=== PATIENT | male | born 1995 | race Asian ===

== ENCOUNTER 2021-12-18 18:32 | Inpatient (IN) ==
[2021-12-18] MEDS ORDERED: ONDANSETRON INJ 2 MG/ML 2 ML VIAL IV STA (19:26)
[2021-12-18] MEDS ORDERED: FAMOTIDINE 20MG IV PUSH 20 MG/5 ML SYR IV STA (19:26)
[2021-12-18] MEDS ORDERED: PANTOprazole 40 MG in SYRINGE 0 ML IV ONE (19:26)
[2021-12-18] MEDS ORDERED: SODIUM CHLORIDE 0.9% 1000ML 1,000 ML IV STA (19:26)
--- NOTE | 2021-12-18 19:31 | Emergency Department Note ---
Impression & Plan Acute upper gastrointestinal bleeding, Anemia, Acute hypotension, HALIE (acute kidney injury) ED Provider Note NAME: CHRIS SUE AGE: 26 SEX: M : 1995 ARRIVES VIA: Walk-In INFORMANT: Patient, ED PROVIDER(S): Kiran Sosa DO CHIEF COMPLAINT: GI bleeding HPI: The patient is a 26-year-old male who presented to the emergency department for an evaluation of GI bleeding. The patient for started noticing multiple episodes of emesis which she states were dark and some actually had gross blood. He then started noticing black stool. The symptoms occurred over the course the last 48 hours. Symptoms were moderate to severe. He started getting very dizzy and lightheaded especially with standing. He presented to the emergency department for further evaluation. The patient states he did have a near syncopal episode. He denies having any headache at this time. He said no fever. He has no sick contacts as far as he knows. He was brought directly back from triage because he was hypotensive. ROS: See above HPI for pertinent positives & negatives. A total of 10 systems reviewed and were otherwise negative. PAST MEDICAL HISTORY: See Below PAST SURGICAL HISTORY: See Below FAMILY HISTORY: See Below SOCIAL HISTORY: See Below HOME MEDICATIONS: See Below ALLERGIES: See Below VITALS: See Below PHYSICAL EXAMINATION: GENERAL: Patient is awake and alert. He is somewhat anxious appearing. EYES: The conjunctivae are clear. The pupils are round and reactive. EARS, NOSE, MOUTH AND THROAT: The nose is without any evidence of any deformity. Mucous membranes are dry. NECK: The neck is nontender and supple. RESPIRATORY: Normal respiratory effort is noted there is no evidence of wheezing rhonchi or rales CARDIOVASCULAR: Tachycardic rate with regular rhythm was noted. There is no definite murmur. GASTROINTESTINAL: Abdomen was soft and nondistended. There was no tenderness guarding or rigidity. Rectal exam revealed black stool which was strongly heme positive. MUSCULOSKELETAL/EXTREMITIES: There is no evidence of gross deformity full range of motion is noted in the hips and shoulders. SKIN: Skin was pale and dry. Pedal edema was noted bilaterally. This was trace. NEUROLOGIC: Patient is awake alert and oriented x3 MEDICAL DECISION MAKING: The patient is a 26-year-old male who presented to the emergency department with hypotension and GI bleeding. I discussed the patient's laboratory and rad iographic studies with him. He was treated with multiple IV fluid boluses. He was found have an elevated white blood cell count as well as anemia. He did not require blood transfusion at this time. Given the patient's elevation in creatinine I do feel significantly dehydrated. I discussed this case with the on-call [facility] hospitalist. They have agreed to evaluate the patient in the emergency department for further management and disposition. Triage Nursing notes reviewed. Prior medical records reviewed Vital Signs: reviewed and remarkable for hypotension and tachycardia. Differential diagnosis: Diverticulosis, AVM, coagulopathy, colitis, inflammatory bowel disease, malignancy, Katalina-Pride tear, esophagitis, peptic ulcer disease, variceal bleed, gastritis, epistaxis, fissure, hemorrhoids, as well as other pathologies. ER treatment provided: See below Diagnostics interpreted by me: ECG: EKG was obtained in the emergency department. My interpretation is normal sinus rhythm at 76 bpm. There was no PVCs noted. There was a delta wave appreciated with a normal NC interval. This could be consistent with a [id number]-[id number]-[id number] tracing. Cardiac Monitoring: An order was placed for continuous cardiac monitoring. The monitor shows a rate of 81 bpm with sinus tachycardia. Laboratory studies: As stated above and show below. Imaging studies: See below Consultation(s): I discussed this case with Dr. Boyce who is on-call for the [facility] hospitalist group. Past Med/Surg History Medical History (Updated 12/18/21 @ 21:00 by Deepti Boyce DO) No significant past medical history Surgical History (Updated 12/18/21 @ 20:58 by Deepti Boyce DO) No significant past surgical history Family History (Updated 12/18/21 @ 20:58 by Deepti Boyce DO) Other No significant family history Social History (Updated 12/18/21 @ 20:58 by Deepti Boyce DO) Smoking Status: Current every day smoker Tobacco Type: Cigarettes Hx Alcohol Use: No Hx Substance Use: No Preferred Language: Arabic Feels Safe at Home: Yes Allergies Allergies Allergy/AdvReac Type Severity Reaction Status Date / Time No Known Allergies Allergy Verified 12/18/21 20:59 Home Meds Home Medications Medication Instructions Recorded Confirmed No Known Home Medications 12/18/21 12/18/21 Results & Data (ED) Vital Signs Vital Signs - 24 hr 12/18/21 19:06 12/18/21 19:30 12/18/21 19:31 Temperature 36.5 C Temperature Source Temporal Artery Scan Pulse Rate - Lying Pulse Rate - Sitting Pulse Rate - Standing Pulse Rate 86 Pulse Rate [Bilateral Apical] 84 Respiratory Rate 20 20 20 Respiratory Effort / Characteristics Non-Labored Spontaneous Non-Labored Respiratory Depth Normal Normal Blood Pressure - Lying Blood Pressure - Sitting Blood Pressure- Standing Blood Pressure 66/45 L Blood Pressure [Right Arm] 75/39 L Blood Pressure Mean 52 Blood Pressure Mean [Right Arm] 51 Blood Pressure Position Sitting Pulse Oximetry 95 96 96 Oxygen Delivery Method Room Air Room Air Room Air Sepsis Recent Fever Within 48 Hours No Sepsis New/Unexplained Change in Mental Status N/A Sepsis Action Taken by Nursing No Action Required 12/18/21 19:32 12/18/21 19:51 12/18/21 20:15 Temperature Temperature Source Pulse Rate - Lying Pulse Rate - Sitting Pulse Rate - Standing Pulse Rate Pulse Rate [Bilateral Apical] 83 88 Respiratory Rate 20 20 Respiratory Effort / Characteristics Respiratory Depth Blood Pressure - Lying Blood Pressure - Sitting Blood Pressure- Standing Blood Pressure Blood Pressure [Right Arm] 90/46 L 95/54 L Blood Pressure Mean Blood Pressure Mean [Right Arm] 60 67 Blood Pressure Position Pulse Oximetry 96 100 96 Oxygen Delivery Method Room Air Room Air Room Air Sepsis Recent Fever Within 48 Hours Sepsis New/Unexplained Change in Mental Status Sepsis Action Taken by Nursing 12/18/21 20:43 12/18/21 22:00 12/18/21 22:00 Temperature Temperature Source Pulse Rate - Lying 90 Pulse Rate - Sitting 101 H Pulse Rate - Standing 102 H Pulse Rate Pulse Rate [Bilateral Apical] 86 101 H Respiratory Rate 20 18 Respiratory Effort / Characteristics Respiratory Depth Blood Pressure - Lying 102/74 Blood Pressure - Sitting 107/24 L Blood Pressure- Standing 144/59 H Blood Pressure Blood Pressure [Right Arm] 107/54 L 107/24 L Blood Pressure Mean Blood Pressure Mean [Right Arm] 71 51 Blood Pressure Position Pulse Oximetry 100 100 Oxygen Delivery Method Room Air Room Air Sepsis Recent Fever Within 48 Hours Sepsis New/Unexplained Change in Mental Status Sepsis Action Taken by [facility] Medications Current Medication List: was personally reviewed by me Laboratory Data Attestation: I reviewed the patient's lab results. Result diagrams: 12/18/21 19:25 12/18/21 19:25 Lab Results 12/18/21 12/18/21 12/18/21 Range/Units 19:25 19:25 19:25 WBC 27.55 H (4.8-10.8) K/ul RBC 3.45 L (4.63-6.08) M/uL Hgb 10.8 L (14.0-18.0) g/dl Hct 30.9 L (40.1-51.0) % MCV 89.6 (80.0-100.0) fL MCH 31.3 (25.0-34.0) pg MCHC 35.0 (32.0-36.0) g/dL RDW Std Deviation 42.6 (36.4-46.3) fL RDW Coeff of Shaggy 13.2 (11.5-14.5) % Plt Count 383 (130-400) K/uL MPV 9.8 (9.4-12.4) fL Immature Gran % (Auto) 2.0 % Neut % (Auto) 82.0 % Lymph % (Auto) 12.7 % [place] % (Auto) 2.9 % Eos % (Auto) 0.0 % Baso % (Auto) 0.4 % Neut # (Auto) 22.58 H (1.4-6.5) K/uL Lymph # (Auto) 3.49 H (1.2-3.4) K/uL [place] # (Auto) 0.80 (0.24-0.82) K/uL Eos # (Auto) 0.00 (0-0.50) K/uL Baso # (Auto) 0.12 (0-0.2) K/uL Immature Gran # (Auto) 0.56 H (0.00-0.02) K/uL PT 10.6 (9.0-12.0) Seconds INR 1.0 (0.9-1.1) APTT 20.4 L (21.0-31.0) Seconds PTT Ratio 0.7 Sodium 139 (136-145) mmol/L Potassium 5.0 (3.5-5.1) mmol/L Chloride 109 H (98-107) mmol/L Carbon Dioxide 20 L (21-32) mmol/L Anion Gap 10 (3-11) BUN 49 H (6-23) mg/dl Creatinine 2.69 H (0.6-1.4) mg/dl Est Cr Clr Drug Dosing 55.0 ml/min Est GFR ( Amer) 36.7 ml/min Est GFR (Non-Af Amer) 31.7 ml/min BUN/Creatinine Ratio 18.2 (10-20) Glucose 220 H (70-99(Fasting)) mg/dl Calcium 8.9 (8.5-10.1) mg/dl Total Bilirubin 0.7 (0.2-1.0) mg/dl AST 13 (13-39) U/L ALT 25 (7-52) U/L Alkaline Phosphatase 49 (34-104) U/L Troponin I High Sens 4.7 (0-20) pg/ml Total Protein 6.4 (6.0-8.3) gm/dl Albumin 4.1 (3.4-5.0) gm/dl Globulin 2.3 L (2.5-4.0) gm/dl Albumin/Globulin Ratio 1.8 (0.9-2) Lipase 23 (11-82) U/L Urine Color Urine Appearance (Clear) Urine pH (4.5-7.5) Ur Specific [place] (1.000-1.030) Urine Protein (Negative) Urine Glucose (UA) (Negative) Urine Ketones (Negative) Urine Blood (Negative) Urine Nitrite (Negative) Urine Bilirubin (Negative) Urine Urobilinogen (Negative) Ur Leukocyte Esterase (Negative) Urine WBC (Auto) (0-5) /hpf Urine RBC (Auto) (0-4) /hpf U Hyaline Cast (Auto) (0-5) /lpf U Epithel Cells (Auto) (0-5) /lpf Urine Bacteria (Auto) (Negative) Ur Renal Epithelial Cell POC Stool Occult Blood (Negative) SARS-CoV-2, RNA, NAAT (NEGATIVE) Blood Type Antibody Screen 12/18/21 12/18/21 12/18/21 Range/Units 19:28 19:33 19:44 WBC (4.8-10.8) K/ul RBC (4.63-6.08) M/uL Hgb (14.0-18.0) g/dl Hct (40.1-51.0) % MCV (80.0-100.0) fL MCH (25.0-34.0) pg MCHC (32.0-36.0) g/dL RDW Std Deviation (36.4-46.3) fL RDW Coeff of Shaggy (11.5-14.5) % Plt Count (130-400) K/uL MPV (9.4-12.4) fL Immature Gran % (Auto) % Neut % (Auto) % Lymph % (Auto) % [place] % (Auto) % Eos % (Auto) % Baso % (Auto) % Neut # (Auto) (1.4-6.5) K/uL Lymph # (Auto) (1.2-3.4) K/uL [place] # (Auto) (0.24-0.82) K/uL Eos # (Auto) (0-0.50) K/uL Baso # (Auto) (0-0.2) K/uL Immature Gran # (Auto) (0.00-0.02) K/uL PT (9.0-12.0) Seconds INR (0.9-1.1) APTT (21.0-31.0) Seconds PTT Ratio Sodium (136-145) mmol/L Potassium (3.5-5.1) mmol/L Chloride (98-107) mmol/L Carbon Dioxide (21-32) mmol/L Anion Gap (3-11) BUN (6-23) mg/dl Creatinine (0.6-1.4) mg/dl Est Cr Clr Drug Dosing ml/min Est GFR ( Amer) ml/min Est GFR (Non-Af Amer) ml/min BUN/Creatinine Ratio (10-20) Glucose (70-99(Fasting)) mg/dl Calcium (8.5-10.1) mg/dl Total Bilirubin (0.2-1.0) mg/dl AST (13-39) U/L ALT (7-52) U/L Alkaline Phosphatase (34-104) U/L Troponin I High Sens (0-20) pg/ml Total Protein (6.0-8.3) gm/dl Albumin (3.4-5.0) gm/dl Globulin (2.5-4.0) gm/dl Albumin/Globulin Ratio (0.9-2) Lipase (11-82) U/L Urine Color Urine Appearance (Clear) Urine pH (4.5-7.5) Ur Specific [place] (1.000-1.030) Urine Protein (Negative) Urine Glucose (UA) (Negative) Urine Ketones (Negative) Urine Blood (Negative) Urine Nitrite (Negative) Urine Bilirubin (Negative) Urine Urobilinogen (Negative) Ur Leukocyte Esterase (Negative) Urine WBC (Auto) (0-5) /hpf Urine RBC (Auto) (0-4) /hpf U Hyaline Cast (Auto) (0-5) /lpf U Epithel Cells (Auto) (0-5) /lpf Urine Bacteria (Auto) (Negative) Ur Renal Epithelial Cell POC Stool Occult Blood Positive A (Negative) SARS-CoV-2, RNA, NAAT NEGATIVE (NEGATIVE) Blood Type O Positive Antibody Screen NEGATIVE 12/18/21 Range/Units 22:10 WBC (4.8-10.8) K/ul RBC (4.63-6.08) M/uL Hgb (14.0-18.0) g/dl Hct (40.1-51.0) % MCV (80.0-100.0) fL MCH (25.0-34.0) pg MCHC (32.0-36.0) g/dL RDW Std Deviation (36.4-46.3) fL RDW Coeff of Shaggy (11.5-14.5) % Plt Count (130-400) K/uL MPV (9.4-12.4) fL Immature Gran % (Auto) % Neut % (Auto) % Lymph % (Auto) % [place] % (Auto) % Eos % (Auto) % Baso % (Auto) % Neut # (Auto) (1.4-6.5) K/uL Lymph # (Auto) (1.2-3.4) K/uL [place] # (Auto) (0.24-0.82) K/uL Eos # (Auto) (0-0.50) K/uL Baso # (Auto) (0-0.2) K/uL Immature Gran # (Auto) (0.00-0.02) K/uL PT (9.0-12.0) Seconds INR (0.9-1.1) APTT (21.0-31.0) Seconds PTT Ratio Sodium (136-145) mmol/L Potassium (3.5-5.1) mmol/L Chloride (98-107) mmol/L Carbon Dioxide (21-32) mmol/L Anion Gap (3-11) BUN (6-23) mg/dl Creatinine (0.6-1.4) mg/dl Est Cr Clr Drug Dosing ml/min Est GFR ( Amer) ml/min Est GFR (Non-Af Amer) ml/min BUN/Creatinine Ratio (10-20) Glucose (70-99(Fasting)) mg/dl Calcium (8.5-10.1) mg/dl Total Bilirubin (0.2-1.0) mg/dl AST (13-39) U/L ALT (7-52) U/L Alkaline Phosphatase (34-104) U/L Troponin I High Sens (0-20) pg/ml Total Protein (6.0-8.3) gm/dl Albumin (3.4-5.0) gm/dl Globulin (2.5-4.0) gm/dl Albumin/Globulin Ratio (0.9-2) Lipase (11-82) U/L Urine Color Yellow Urine Appearance Cloudy A (Clear) Urine pH 7.0 (4.5-7.5) Ur Specific [place] 1.014 (1.000-1.030) Urine Protein 2+ H (Negative) Urine Glucose (UA) Negative (Negative) Urine Ketones Negative (Negative) Urine Blood 1+ H (Negative) Urine Nitrite Negative (Negative) Urine Bilirubin Negative (Negative) Urine Urobilinogen Negative (Negative) Ur Leukocyte Esterase Negative (Negative) Urine WBC (Auto) 10-30 H (0-5) /hpf Urine RBC (Auto) 0-4 (0-4) /hpf U Hyaline Cast (Auto) 5-10 H (0-5) /lpf U Epithel Cells (Auto) 10-20 H (0-5) /lpf Urine Bacteria (Auto) Negative (Negative) Ur Renal Epithelial Cell Not Reportable POC Stool Occult Blood (Negative) SARS-CoV-2, RNA, NAAT (NEGATIVE) Blood Type Antibody Screen Administered Medications Discontinued Medications Sodium Chloride (Nss 1000ml) 1,000 mls @ 999 mls/hr IV .Q1H1M STA Stop: 12/18/21 20:26 Last Infusion: 12/18/21 20:16 Dose: 0 mls/hr Documented By: Admin: 12/18/21 19:40 Dose: 999 mls/hr Documented By: BENJAMÍN Pantoprazole Sodium 40 mg/ (Syringe) 10 mls @ 5 mls/min IV NOW ONE Stop: 12/18/21 19:27 Last Admin: 12/18/21 19:51 Dose: 5 mls/min Documented By: HWG Famotidine (Pepcid 20mg Iv Push) 20 mg in 5 mls @ 2.5 mls/min IV NOW STA Stop: 12/18/21 19:27 Last Admin: 12/18/21 19:40 Dose: 2.5 mls/min Documented By: BOBG Sodium Chloride (Nss 1000ml) 1,000 mls @ 999 mls/hr IV .Q1H1M ONE Stop: 12/18/21 21:53 Last Infusion: 12/18/21 22:21 Dose: 0 mls/hr Documented By: HWPete Admin: 12/18/21 21:12 Dose: 999 mls/hr Documented By: QGV Ondansetron HCl (Ondansetron Inj 2 Mg/Ml 2 Ml Vial) 4 mg IV NOW STA Stop: 12/18/21 19:27 Last Admin: 12/18/21 19:40 Dose: 4 mg Documented By: HWPete Imaging Data Radiologist's Impression: Chest X-Ray 12/18/21 19:26 XR chest 1V portable HISTORY: GI bleed. COMPARISON: None. FINDINGS: The lungs are clear. Cardiac silhouette is normal in size. No pleural effusions. No pneumothorax. IMPRESSION: No acute process. ACT 112: Negative or not required by law. Electronically signed by: Alen Morris M.D. 12/18/2021 8:28 PM KUB X-Ray 12/18/21 19:26 KUB HISTORY: GI bleed. COMPARISON: None. FINDINGS: A few prominent gas-filled loops of small bowel within the right side of the abdomen measuring up to 3.3 cm in diameter. There is gas and stool seen throughout the colon. The No renal calculi. No ureteral calculi. No pneumoperitoneum or pneumatosis. IMPRESSION: A few prominent gas-filled loops of small bowel within the right side of the abdomen. This favors a mild ileus. A partial bowel obstruction is considered less likely but not entirely excluded. ACT 112: Negative or not required by law. Electronically signed by: Alen Morris M.D. 12/18/2021 8:26 PM Discharge Plan Visit Data Chief Complaint: Vomiting Stated Complaint: VOMITTING BLOOD, LOOSE BOWELS ED Provider: Kiran Sosa Discharge Problem: Acute upper gastrointestinal bleeding, Anemia, Acute hypotension, HALIE (acute kidney injury) Patient Disposition: Being Evaluated by Hospitalist Forms Stand Alone Forms: Belly Ballot Prescriptions Prescriptions: No Action No Known Home Medications Referrals Referrals: PCP,NO [Primary Care Provider] -
[2021-12-18 19:40] LABS: Hematocrit (blood only) 30.9 % (40.1-51.0); Hemoglobin 10.8 g/dl (14.0-18.0); Mean Corpuscular Hemoglobin 31.3 pg (25.0-34.0); Mean Corpuscular Volume 89.6 fL (80.0-100.0); Mean Platelet Volume 9.8 fL (9.4-12.4); Platelet Count 383 K/uL (130-400); RDW Coefficient of Variation 13.2 % (11.5-14.5); RDW Standard Deviation 42.6 fL (36.4-46.3); Red Blood Count 3.45 M/uL (4.63-6.08); White Blood Count 27.55 K/ul (4.8-10.8)
[2021-12-18 19:54] LABS: Partial Thromboplastin Ratio 0.7; Partial Thromboplastin Time 20.4 Seconds (21.0-31.0); Prothrombin Time 10.6 Seconds (9.0-12.0)
[2021-12-18 19:57] LABS: Basophils # (auto) 0.12 K/uL (0-0.2); Basophils % (auto) 0.4 %; Immature Granulocytes # (auto) 0.56 K/uL (0.00-0.02); Lymphocytes # (auto) 3.49 K/uL (1.2-3.4); Lymphocytes % (auto) 12.7 %; Monocytes % (auto) 2.9 %; Neutrophils # (auto) 22.58 K/uL (1.4-6.5)
[2021-12-18 20:06] LABS: Albumin Globulin Ratio 1.8 (0.9-2); Albumin Level 4.1 gm/dl (3.4-5.0); BUN Creatinine Ratio 18.2 (10-20); Bilirubin,Total 0.7 mg/dl (0.2-1.0); Calcium 8.9 mg/dl (8.5-10.1); Est GFR (African American) 36.7 ml/min; Est GFR (Non-African American) 31.7 ml/min; Globulin 2.3 gm/dl (2.5-4.0); Total Protein 6.4 gm/dl (6.0-8.3)
[2021-12-18 20:07] LABS: Troponin I High Sensitivity 4.7 pg/ml (0-20)
--- NOTE | 2021-12-18 20:28 | XRay Report ---
KUB HISTORY: GI bleed. COMPARISON: None. FINDINGS: A few prominent gas-filled loops of small bowel within the right side of the abdomen measur ing up to 3.3 cm in diameter. There is gas and stool seen throughout the colon. The No renal calculi . No ureteral calculi. No pneumoperitoneum or pneumatosis. IMPRESSION: A few prominent gas-filled loops of small bowel within the right side of the abdomen. This favors a m ild ileus. A partial bowel obstruction is considered less likely but not entirely excluded. ACT 112: Negative or not required by law. Electronically signed by: Alen Morris M.D. 12/18/2021 8:26 PM
--- NOTE | 2021-12-18 20:30 | XRay Report ---
XR chest 1V portable HISTORY: GI bleed. COMPARISON: None. FINDINGS: The lungs are clear. Cardiac silhouette is normal in size. No pleural effusions. No pneumot horax. IMPRESSION: No acute process. ACT 112: Negative or not required by law. Electronically signed by: Alen Morris M.D. 12/18/2021 8:28 PM
--- NOTE | 2021-12-18 20:48 | History & Physical Report ---
Date of Service December 18, 2021 Assessment & Plan (1) Nausea vomiting and diarrhea: Plan: 26 yo male with no significant past medical or surgical history presenting with one day of nausea with several episodes of hematemesis as well as black watery diarrhea. Patient does smoke cigarettes, no EtOH or NSAID use. Hypotensive on presentation to 66/45 which has improved to 107/54 following 2L crystalloid resuscitation. -Admit to PCU -Check stool PCR -Continue IVF - LR at 125mL/hr x 2 liters -Zofran PRN nausea (2) GIB (gastrointestinal bleeding): Plan: Patient reports bright red vomitus with clots present. No prior history of UGIB. No EtOH or NSAID use. Patient does smoke. Blood pressure has improved. Ddx to include Katalina Pride tear, gastric or duodenal ulcer, esophagitis. Normochromic normocytic anemia with Hgb=10.8/30.9 Normal INR and platelet -Maintain two large bore PIVs -CBC q 8 hours, transfuse for ongoing bleed, symptomatic anemia or Hgb < 7 -NPO -Continue Protonix 40mg IV BID -GI consultation appreciated (3) HALIE (acute kidney injury): Plan: Elevated BUN at 49, Cr of 2.69, unknown baseline. Suspect pre-renal etiology in setting of vomiting, diarrhea and possible GIB. Patient is urinating without difficulty. BMP with borderline K of 5 and HCO3 of 10 with normal anion gap. -Monitor UOP -Avoid nephrotoxic agents -Renal dosing where needed - LR as above at 125mL/hr x 2 liters -Repeat chemistry F/E/N - LR at 125mL/hr x 2 liters, monitor electrolytes. NPO Ppx - Low risk for DVT Code - Full Dispo - Admit to PCU History of Present Illness Chief Complaint: nausea, vomiting, hematemesis, diarrhea Primary Care Provider: NO PCP Bakari Etienne is a 26yo male with no significant past medical history presenting with one day of nausea with 3 episodes of hematemesis that started this AM. He reports bright red blood with presence of clots in the vomitus. He also has had several episodes of black, watery diarrhea. Patient reports feeling chills and tired. He also had dizziness and possible syncopal event while in the shower today. He has no additional complaints. Specifically denies fever, chills, cough, SOB, chest pain, abdominal pain. No sick contacts, recent travel. Patient does smoke cigarettes - appx 1 ppd. He does not drink alcohol or use NSAIDS or ASA. No history of prior GIB. 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 No additional complaints at this time. Upon arrival to the ER patient hypotensive at 66/45. He was administered IV Pepcid, Zofran, Protonix and 2L NSS with improvement in blood pressure. Most recently 107/54. ER course: Pepcid 20mg IV, Zofran 4mg IV, Protonix gtt, NSS x 2L Allergies Allergy/AdvReac Type Severity Reaction Status Date / Time No Known Allergies Allergy Verified 12/18/21 20:59 Home Medications Medication Instructions Recorded Confirmed Type No Known Home Medications 12/18/21 12/18/21 History Past Med/Surg History Medical History (Updated 12/18/21 @ 21:00 by Deepti Boyce DO) No significant past medical history Surgical History (Updated 12/18/21 @ 20:58 by Deepti Boyce DO) No significant past surgical history Family History (Updated 12/18/21 @ 20:58 by Deepti Boyce DO) Other No significant family history Social History (Updated 12/18/21 @ 20:58 by Deepti Boyce DO) Smoking Status: Current every day smoker Tobacco Type: Cigarettes Hx Alcohol Use: No Hx Substance Use: No Preferred Language: Kenyan Feels Safe at Home: Yes Review of Systems Review of Systems: All systems reviewed & are unremarkable except as noted in HPI & below Physical Exam Physical Exam: General: patient resting comfortably, NAD, non-toxic in rosi earance, AA&O x 4 Skin: warm, dry, intact, no rashes or lesions HEENT: NC/AT, PERRL, EOMI, anicteric sclera, conjunctiva without injection, external ear normal to inspection and nontender, nares patent, moist mucus membranes, dentition intact, no oropharyngeal lesions, neck supple, trachea midline, no LAD, no thyromegaly, no JVD Heart: +S1/S2, regular, no m/r/g Lungs: equal air entry bilaterally, no rales/rhonchi/wheezes Abd: +BS, soft, NT/ND, no masses/organomegaly/ascites Ext: warm, 2+ pulses in UE/LE bilaterally, no clubbing/cyanosis or edema Neuro: nonfocal, patient AA&O x 4, speech intact, no facial droop, moving all extremities on command with equal strength 5/5 Results & Data Results & Data ([facility]) Vital Signs (Past 12 Hours) Vital Signs Temp Pulse Pulse Resp BP BP Pulse Ox 12/18/21 20:43 86 20 107/54 L 100 12/18/21 20:15 88 20 95/54 L 96 12/18/21 19:51 83 20 90/46 L 100 12/18/21 19:32 96 12/18/21 19:31 20 96 12/18/21 19:30 84 20 75/39 L 96 12/18/21 19:06 36.5 C 86 20 66/45 L 95 O2 Del Method 12/18/21 20:43 Room Air 12/18/21 20:15 Room Air 12/18/21 19:51 Room Air 12/18/21 19:32 Room Air 12/18/21 19:31 Room Air 12/18/21 19:30 Room Air 12/18/21 19:06 Room Air Laboratory Results Laboratory Results WBC 27.55 K/ul (4.8-10.8) H 12/18/21 19:25 RBC 3.45 M/uL (4.63-6.08) L 12/18/21 19:25 Hgb 10.8 g/dl (14.0-18.0) L 12/18/21 19:25 Hct 30.9 % (40.1-51.0) L 12/18/21 19:25 MCV 89.6 fL (80.0-100.0) 12/18/21 19:25 MCH 31.3 pg (25.0-34.0) 12/18/21 19:25 MCHC 35.0 g/dL (32.0-36.0) 12/18/21 19:25 RDW Std Deviation 42.6 fL (36.4-46.3) 12/18/21 19:25 RDW Coeff of Shaggy 13.2 % (11.5-14.5) 12/18/21 19:25 Plt Count 383 K/uL (130-400) 12/18/21 19:25 MPV 9.8 fL (9.4-12.4) 12/18/21 19:25 Immature Gran % (Auto) 2.0 % 12/18/21 19:25 Neut % (Auto) 82.0 % 12/18/21 19:25 Lymph % (Auto) 12.7 % 12/18/21 19:25 [place] % (Auto) 2.9 % 12/18/21:25 Eos % (Auto) 0.0 % 12/18/21:25 Baso % (Auto) 0.4 % 12/18/21: Neut # (Auto) 22.58 K/uL (1.4-6.5) H 12/18/21 19:25 Lymph # (Auto) 3.49 K/uL (1.2-3.4) H 12/18/21 19:25 [place] # (Auto) 0.80 K/uL (0.24-0.82) 12/18/21:25 Eos # (Auto) 0.00 K/uL (0-0.50) 12/18/21: Baso # (Auto) 0.12 K/uL (0-0.2) 12/18/21 19:25 Immature Gran # (Auto) 0.56 K/uL (0.00-0.02) H 12/18/21 19:25 PT 10.6 Seconds (9.0-12.0) 12/18/21 19:25 INR 1.0 (0.9-1.1) 12/18/21 19:25 APTT 20.4 Seconds (21.0-31.0) L 12/18/21: PTT Ratio 0.7 12/18/21 19:25 Sodium 139 mmol/L (136-145) 12/18/21 19:25 Potassium 5.0 mmol/L (3.5-5.1) 12/18/21 19:25 Chloride 109 mmol/L (98-107) H 12/18/21 19:25 Carbon Dioxide 20 mmol/L (21-32) L 12/18/21 19:25 Anion Gap 10 (3-11) 12/18/21 19:25 BUN 49 mg/dl (6-23) H 12/18/21 19:25 Creatinine 2.69 mg/dl (0.6-1.4) H 12/18/21 19:25 Est Cr Clr Drug Dosing 55.0 ml/min 12/18/21 19:25 Est GFR ( Amer) 36.7 ml/min 12/18/21 19:25 Est GFR (Non-Af Amer) 31.7 ml/min 12/18/21 19:25 BUN/Creatinine Ratio 18.2 (10-20) 12/18/21 19:25 Glucose 220 mg/dl (70-99(Fasting)) H 12/18/21 19:25 Calcium 8.9 mg/dl (8.5-10.1) 12/18/21 19:25 Total Bilirubin 0.7 mg/dl (0.2-1.0) 12/18/21 19:25 AST 13 U/L (13-39) 12/18/21 19:25 ALT 25 U/L (7-52) 12/18/21 19:25 Alkaline Phosphatase 49 U/L (34-104) 12/18/21 19:25 Troponin I High Sens 4.7 pg/ml (0-20) 12/18/21 19:25 Total Protein 6.4 gm/dl (6.0-8.3) 12/18/21 19:25 Albumin 4.1 gm/dl (3.4-5.0) 12/18/21 19:25 Globulin 2.3 gm/dl (2.5-4.0) L 12/18/21 19:25 Albumin/Globulin Ratio 1.8 (0.9-2) 12/18/21 19:25 Lipase 23 U/L (11-82) 12/18/21 19:25 Blood Type O Positive 12/18/21: Antibody Screen NEGATIVE 12/18/21 19:28 Impressions Chest X-Ray 12/18/21 19: XR chest 1V portable HISTORY: GI bleed. COMPARISON: None. FINDINGS: The lungs are clear. Cardiac silhouette is normal in size. No pleural effusions. No pneumothorax. IMPRESSION: No acute process. ACT 112: Negative or not required by law. Electronically signed by: Alen Morris M.D. 12/18/2021 8:28 PM KUB X-Ray 12/18/21 19: KUB HISTORY: GI bleed. COMPARISON: None. FINDINGS: A few prominent gas-filled loops of small bowel within the right side of the abdomen measuring up to 3.3 cm in diameter. There is gas and stool seen throughout the colon. The No renal calculi. No ureteral calculi. No pneumoperitoneum or pneumatosis. IMPRESSION: A few prominent gas-filled loops of small bowel within the right side of the abdomen. This favors a mild ileus. A partial bowel obstruction is considered less likely but not entirely excluded. ACT 112: Negative or not required by law. Electronically signed by: Alen Morris M.D. 12/18/2021 8:26 PM PG Care Time/CCT Total # of Minutes Spent Total Time Spent with Patient: Total time spent is greater than 50% in coordination of care (as documented) at patient's floor/unit and/or counseling patient: Coding Level of Care Code 81328 Initial Inpt Care Lvl 2 Diagnoses Nausea vomiting and diarrhea R11.2; R19.7 GIB (gastrointestinal bleeding) K92.2 HALIE (acute kidney injury) N17.9
[2021-12-18] MEDS ORDERED: SODIUM CHLORIDE 0.9% 1000ML 1,000 ML IV ONE (20:53)
[2021-12-18 22:28] LABS: Appearance Urine Cloudy (Clear); Bacteria Urine Automated Negative (Negative); Bilirubin Urine Negative (Negative); Blood Urine 1+ (Negative); Color Urine Yellow; Glucose Urine UA Negative (Negative); Ketones Urine Negative (Negative); Leukocyte Esterase Urine Negative (Negative); Nitrite Urine Negative (Negative); Protein Urine 2+ (Negative); RBC Urine Automated 0-4 /hpf (0-4); Specific Gravity Urine 1.014 (1.000-1.030); Urobilinogen Urine Negative (Negative)
[2021-12-18] MEDS ORDERED: ONDANSETRON INJ 2 MG/ML 2 ML VIAL IV PRN (23:05)
[2021-12-18] MEDS ORDERED: ACETAMINOPHEN 325 MG TAB PO PRN (23:05)
[2021-12-18] MEDS: LACTATED RINGER'S 1,000 ML IV SCH (23:45)
[2021-12-18] MEDS: PANTOprazole 40 MG in SYRINGE 0 ML IV SCH (23:46)
[2021-12-18 23:51] LABS: Basophils # (auto) 0.04 K/uL (0-0.2); Basophils % (auto) 0.2 %; Hematocrit (blood only) 24.5 % (40.1-51.0); Hemoglobin 8.2 g/dl (14.0-18.0); Immature Granulocytes % (auto) 1.5 %; Lymphocytes # (auto) 2.65 K/uL (1.2-3.4); Lymphocytes % (auto) 13.3 %; Mean Corpuscular Hemoglobin 30.4 pg (25.0-34.0); Mean Corpuscular Hgb Conc 33.5 g/dL (32.0-36.0); Mean Corpuscular Volume 90.7 fL (80.0-100.0); Mean Platelet Volume 9.7 fL (9.4-12.4); Monocytes # (auto) 0.86 K/uL (0.24-0.82); Monocytes % (auto) 4.3 %; Neutrophils # (auto) 16.11 K/uL (1.4-6.5); Neutrophils % (auto) 80.7 %; Platelet Count 277 K/uL (130-400); RDW Coefficient of Variation 13.2 % (11.5-14.5); RDW Standard Deviation 43.2 fL (36.4-46.3); White Blood Count 19.96 K/ul (4.8-10.8)
[2021-12-19 00:17] LABS: Calcium 7.7 mg/dl (8.5-10.1); Creatinine Clr Calc Pharmacy 77.8 ml/min; Est GFR (African American) 55.9 ml/min; Est GFR (Non-African American) 48.3 ml/min; Potassium 4.3 mmol/L (3.5-5.1)
[2021-12-19] MEDS: LACTATED RINGER'S 1,000 ML IV SCH (07:09)
[2021-12-19 07:54] LABS: Basophils # (auto) 0.05 K/uL (0-0.2); Basophils % (auto) 0.3 %; Eosinophils # (auto) 0.04 K/uL (0-0.50); Eosinophils % (auto) 0.3 %; Hematocrit (blood only) 22.2 % (40.1-51.0); Hemoglobin 7.6 g/dl (14.0-18.0); Immature Granulocytes # (auto) 0.15 K/uL (0.00-0.02); Immature Granulocytes % (auto) 0.9 %; Lymphocytes % (auto) 24.5 %; Mean Corpuscular Hgb Conc 34.2 g/dL (32.0-36.0); Mean Corpuscular Volume 90.6 fL (80.0-100.0); Mean Platelet Volume 9.9 fL (9.4-12.4); Monocytes # (auto) 0.91 K/uL (0.24-0.82); Monocytes % (auto) 5.7 %; Neutrophils % (auto) 68.3 %; Platelet Count 261 K/uL (130-400); RDW Coefficient of Variation 13.3 % (11.5-14.5); RDW Standard Deviation 43.4 fL (36.4-46.3); Red Blood Count 2.45 M/uL (4.63-6.08); White Blood Count 15.95 K/ul (4.8-10.8)
[2021-12-19 08:13] LABS: BUN Creatinine Ratio 28.4 (10-20); Creatinine Clr Calc Pharmacy 104.9 ml/min; Est GFR (African American) 80.2 ml/min; Est GFR (Non-African American) 69.2 ml/min; Potassium 3.7 mmol/L (3.5-5.1)
[2021-12-19 08:14] LABS: Estimated Average Glucose 111 mg/dl; Hemoglobin A1C 5.5 % (4.5-5.6)
--- NOTE | 2021-12-19 08:19 | Electrocardiogram Report ---
Test Reason : Blood Pressure : / mmHG Vent. Rate : 076 BPM Atrial Rate : 076 BPM P-R Int : 136 ms QRS Dur : 114 ms QT Int : 420 ms P-R-T Axes : 012 -04 054 degrees QTc Int : 472 ms Normal sinus rhythm [id number] Abnormal ECG No previous ECGs available Confirmed by Claudio Pickens ([id number]) on 12/19/2021 8:18:50 AM Referred By: REFERRED SELF Confirmed By:Claudio Pickens
[2021-12-19 08:20] LABS: RBC Morphology Unremarkable
[2021-12-19] MEDS: PANTOprazole 40 MG in SYRINGE 0 ML IV SCH ×2 (08:57→21:29)
--- NOTE | 2021-12-19 10:07 | Hospitalist Progress Note ---
Date of Service December 19, 2021 Assessment & Plan (1) Nausea vomiting and diarrhea: Plan: 26 yo M, current smoker with 5 pack year history, admitted for hematemesis and melena. Acute hematemesis with upper gastrointestinal hemorrhage -Hypotensive on admission, given multiple fluid boluses -Suspect likely due to peptic ulcer disease 2/2 smoking -PT/INR normal, stool PCR pending -Hgb 10.8 on admission, downtrending to 7.6 -Monitor H+H, repeat in afternoon -Transfuse Hgb < 7 -Hemodynamically stable at present -Continue IVF, Protonix infusion, Zofran PRN -GI consulted, awaiting recommendations- suspect pt will need upper endoscopy Acute kidney injury -BUN 49, Cr 2.69 on admission -BUN 40, Cr 1.4 today -Suspect pre-renal azotemia from volume depletion 2/2 UGIB, GI losses -Continue IVF -Trend BMP Tobacco use disorder -Likely cause of his GI bleed -Pt interested in gradually reducing use -Encourage smoking cessation treatment as outpatient FENGI: IVF, NPO for possible endoscopy Code status: Full DVT ppx: Ambulation, low-risk Isolation: None Dispo: PCU/Telemetry (2) GIB (gastrointestinal bleeding): (3) HALIE (acute kidney injury): Admission and Anticipated Discharge Date Admission Date: December 18, 2021 Supervising Physician Co-Signing Physician Notes Resident Physician Supervision Note: I independently interviewed and examined the patient and verified the barrett history and physical, reviewed labs and image studies and agree with resident findings and care plan. Subjective No acute events overnight. Pt reports feeling well. Reports mild nausea responsive to Zofran, fatigue improving. No further episodes of hematemesis or dark stools. Denies abdominal pain, chest pain. Pt does state he would like to lessen his tobacco use if this is contributory to his bleeding. Review of Systems Review of Systems: Per subjective Physical Exam Physical Exam: General: well-appearing obese male in no acute distress HEENT: mildly dry mucous membranes, no blood noted in pharynx on inspection CV: RRR, normal S1 and S2, no murmurs appreciated, no JVD Resp: CTAB, unlabored respirations Abd: soft, nontender, nondistended, normoactive bowel sounds, no guarding or rebound Extremities: capillary refill <2s of b/l UE and LE, radial/pedal pulses 2+ b/l Skin: warm, dry, no central or peripheral pallor Results & Data Results & Data ([facility]) Vital Signs (Past 12 Hours) Vital Signs Pulse Pulse Resp BP BP Pulse Ox Pulse Ox 12/19/21 08:00 74 17 95 12/19/21 08:00 111/50 L 12/19/21 07:30 112/55 L 12/19/21 07:30 72 17 99 12/19/21 07:00 70 15 96 12/19/21 07:00 105/63 12/19/21 06:50 74 20 130/61 98 12/19/21 06:28 81 20 109/54 L 98 12/19/21 05:51 94 H 20 97/54 L 99 12/19/21 04:38 82 20 83/51 L 92 12/19/21 03:48 85 20 105/51 L 93 12/19/21 02:26 86 20 84/46 L 95 12/19/21 00:44 90 20 95/44 L 92 12/18/21 23:46 78 20 90/47 L 98 12/18/21 23:38 98 12/18/21 23:04 88 20 85/43 L 98 O2 Del Method O2 Del Method 12/19/21 08:00 12/19/21 08:00 12/19/21 07:30 12/19/21 07:30 12/19/21 07:00 12/19/21 07:00 12/19/21 06:50 Room Air 12/19/21 06:28 Room Air 12/19/21 05:51 Room Air 12/19/21 04:38 Room Air 12/19/21 03:48 Room Air 12/19/21 02:26 Room Air 12/19/21 00:44 Room Air 12/18/21 23:46 Room Air 12/18/21 23:38 Room Air 12/18/21 23:04 Room Air Resident Activity Tracking Resident Involvement: Resident Care Provided Care Provided: Adult Hospital Medicine
--- NOTE | 2021-12-19 12:52 | Gastrointestinal Consultation ---
Date of Consultation December 19, 2021 Assessment & Plan (1) GIB (gastrointestinal bleeding): Episode of hematemesis without obvious cause. Only risk for ulcer disease is cigarette smoking. History not typical for rosa-hu. Plan EGD. Discussed procedure and risks with patient and spouse History of Present Illness Reason for Consultation: GI bleeding Attending Physician: Deepti Boyce, DO History of Present Illness 26 year old man who tells me he woke up yesterday vomiting blood. He vomited on three occasions with dark blood. Denies abdominal pain or heartburn or indigestion. Denies Etoh or NSAID usage. Feels well now and felt well before Allergies Allergy/AdvReac Type Severity Reaction Status Date / Time No Known Allergies Allergy Verified 12/18/21 20:59 Home Medications Medication Instructions Recorded Confirmed Type No Known Home Medications 12/18/21 12/18/21 History Patient History Medical History No significant past medical history Surgical History No significant past surgical history Family History Other No significant family history Social History Smoking Status: Current every day smoker Tobacco Type: Cigarettes Hx Alcohol Use: No Hx Substance Use: No Preferred Language: Chinese Feels Safe at Home: Yes Assistive Devices: None Review of Systems Review of Systems: All systems reviewed & are unremarkable except as noted in HPI & below Physical Exam Constitutional: WD/WN, vitals as above no acute distress Eyes: PERRL, conjunctivae normal, anicteric sclerae ENMT: external ear and nose normal, oropharynx normal Neck: trachea midline, no thyromegaly Respiratory: normal respiratory effort, lungs clear to auscultation Cardiovascular: RRR, no murmur, no edema Gastrointestinal (Abdomen): normal bowel sounds, soft, nontender, no hepatosplenomegaly Musculoskeletal: Extremities: no cyanosis and no clubbing Skin: no rashes, warm and dry Neurologic: PERRL, EOMI, accommodation nl, no face palsy, no dysarthria Psychiatric: Orientation: alert and oriented x 3 Results & Data ([facility]) Vital Signs (Past 12 Hours) Vital Signs Pulse Pulse Resp BP BP Pulse Ox O2 Del Method 12/19/21 12:30 85 21 98 12/19/21 12:30 102/68 12/19/21 12:00 83 20 96 12/19/21 12:00 108/62 12/19/21 11:30 87 16 97 12/19/21 11:30 109/67 12/19/21 11:00 84 18 98 12/19/21 11:00 117/60 12/19/21 10:30 114/55 L 12/19/21 10:30 69 15 99 12/19/21 10:00 73 19 100 12/19/21 10:00 106/55 L 12/19/21 09:30 79 19 100 12/19/21 09:30 114/63 12/19/21 09:00 82 14 99 12/19/21 09:00 107/61 12/19/21 08:30 106/57 L 12/19/21 08:30 79 17 98 12/19/21 08:00 74 17 95 12/19/21 08:00 111/50 L 12/19/21 07:30 112/55 L 12/19/21 07:30 72 17 99 12/19/21 07:00 70 15 96 12/19/21 07:00 105/63 12/19/21 06:50 74 20 130/61 98 Room Air 12/19/21 06:28 81 20 109/54 L 98 Room Air 12/19/21 05:51 94 H 20 97/54 L 99 Room Air 12/19/21 04:38 82 20 83/51 L 92 Room Air 12/19/21 03:48 85 20 105/51 L 93 Room Air 12/19/21 02:26 86 20 84/46 L 95 Room Air Laboratory Results 12/19/21 12/19/21 12/19/21 Range/Units 07:18 07:18 07:18 WBC 15.95 H (4.8-10.8) K/ul RBC 2.45 L (4.63-6.08) M/uL Hgb 7.6 L (14.0-18.0) g/dl Hct 22.2 L (40.1-51.0) % MCV 90.6 (80.0-100.0) fL MCH 31.0 (25.0-34.0) pg MCHC 34.2 (32.0-36.0) g/dL RDW Std Deviation 43.4 (36.4-46.3) fL RDW Coeff of Shaggy 13.3 (11.5-14.5) % Plt Count 261 (130-400) K/uL MPV 9.9 (9.4-12.4) fL Immature Gran % (Auto) 0.9 % Neut % (Auto) 68.3 % Lymph % (Auto) 24.5 % Harvey % (Auto) 5.7 % Eos % (Auto) 0.3 % Baso % (Auto) 0.3 % Neut # (Auto) 10.90 H (1.4-6.5) K/uL Lymph # (Auto) 3.90 H (1.2-3.4) K/uL Harvey # (Auto) 0.91 H (0.24-0.82) K/uL Eos # (Auto) 0.04 (0-0.50) K/uL Baso # (Auto) 0.05 (0-0.2) K/uL Immature Gran # (Auto) 0.15 H (0.00-0.02) K/uL RBC Morphology Unremarkable PT (9.0-12.0) Seconds INR (0.9-1.1) APTT (21.0-31.0) Seconds PTT Ratio Sodium 141 (136-145) mmol/L Potassium 3.7 (3.5-5.1) mmol/L Chloride 114 H (98-107) mmol/L Carbon Dioxide 23 (21-32) mmol/L Anion Gap 4 (3-11) BUN 40 H (6-23) mg/dl Creatinine 1.41 H D (0.6-1.4) mg/dl Est Cr Clr Drug Dosing 104.9 ml/min Est GFR ( Amer) 80.2 ml/min Est GFR (Non-Af Amer) 69.2 ml/min BUN/Creatinine Ratio 28.4 H (10-20) Glucose 94 (70-99(Fasting)) mg/dl Fasting Glucose (70-99) mg/dl Estimat Average Glucose 111 mg/dl Hemoglobin A1c 5.5 (4.5-5.6) % Calcium 8.0 L (8.5-10.1) mg/dl Total Bilirubin (0.2-1.0) mg/dl AST (13-39) U/L ALT (7-52) U/L Alkaline Phosphatase (34-104) U/L Troponin I High Sens (0-20) pg/ml Total Protein (6.0-8.3) gm/dl Albumin (3.4-5.0) gm/dl Globulin (2.5-4.0) gm/dl Albumin/Globulin Ratio (0.9-2) Lipase (11-82) U/L Urine Color Urine Appearance (Clear) Urine pH (4.5-7.5) Ur Specific [place] (1.000-1.030) Urine Protein (Negative) Urine Glucose (UA) (Negative) Urine Ketones (Negative) Urine Blood (Negative) Urine Nitrite (Negative) Urine Bilirubin (Negative) Urine Urobilinogen (Negative) Ur Leukocyte Esterase (Negative) Urine WBC (Auto) (0-5) /hpf Urine RBC (Auto) (0-4) /hpf U Hyaline Cast (Auto) (0-5) /lpf U Epithel Cells (Auto) (0-5) /lpf Urine Bacteria (Auto) (Negative) Ur Renal Epithelial Cell POC Stool Occult Blood (Negative) SARS-CoV-2, RNA, NAAT (NEGATIVE) Blood Type Antibody Screen 12/18/21 12/18/21 12/18/21 Range/Units 23:27 23:27 22:10 WBC 19.96 H (4.8-10.8) K/ul RBC 2.70 L (4.63-6.08) M/uL Hgb 8.2 L (14.0-18.0) g/dl Hct 24.5 L (40.1-51.0) % MCV 90.7 (80.0-100.0) fL MCH 30.4 (25.0-34.0) pg MCHC 33.5 (32.0-36.0) g/dL RDW Std Deviation 43.2 (36.4-46.3) fL RDW Coeff of Shaggy 13.2 (11.5-14.5) % Plt Count 277 (130-400) K/uL MPV 9.7 (9.4-12.4) fL Immature Gran % (Auto) 1.5 % Neut % (Auto) 80.7 % Lymph % (Auto) 13.3 % Harvey % (Auto) 4.3 % Eos % (Auto) 0.0 % Baso % (Auto) 0.2 % Neut # (Auto) 16.11 H (1.4-6.5) K/uL Lymph # (Auto) 2.65 (1.2-3.4) K/uL Harvey # (Auto) 0.86 H (0.24-0.82) K/uL Eos # (Auto) 0.00 (0-0.50) K/uL Baso # (Auto) 0.04 (0-0.2) K/uL Immature Gran # (Auto) 0.30 H (0.00-0.02) K/uL RBC Morphology PT (9.0-12.0) Seconds INR (0.9-1.1) APTT (21.0-31.0) Seconds PTT Ratio Sodium 141 (136-145) mmol/L Potassium 4.3 (3.5-5.1) mmol/L Chloride 115 H (98-107) mmol/L Carbon Dioxide 19 L (21-32) mmol/L Anion Gap 7 (3-11) BUN 46 H (6-23) mg/dl Creatinine 1.90 H D (0.6-1.4) mg/dl Est Cr Clr Drug Dosing 77.8 ml/min Est GFR ( Amer) 55.9 ml/min Est GFR (Non-Af Amer) 48.3 ml/min BUN/Creatinine Ratio (10-20) Glucose (70-99(Fasting)) mg/dl Fasting Glucose 91 (70-99) mg/dl Estimat Average Glucose mg/dl Hemoglobin A1c (4.5-5.6) % Calcium 7.7 L (8.5-10.1) mg/dl Total Bilirubin (0.2-1.0) mg/dl AST (13-39) U/L ALT (7-52) U/L Alkaline Phosphatase (34-104) U/L Troponin I High Sens (0-20) pg/ml Total Protein (6.0-8.3) gm/dl Albumin (3.4-5.0) gm/dl Globulin (2.5-4.0) gm/dl Albumin/Globulin Ratio (0.9-2) Lipase (11-82) U/L Urine Color Yellow Urine Appearance Cloudy A (Clear) Urine pH 7.0 (4.5-7.5) Ur Specific [place] 1.014 (1.000-1.030) Urine Protein 2+ H (Negative) Urine Glucose (UA) Negative (Negative) Urine Ketones Negative (Negative) Urine Blood 1+ H (Negative) Urine Nitrite Negative (Negative) Urine Bilirubin Negative (Negative) Urine Urobilinogen Negative (Negative) Ur Leukocyte Esterase Negative (Negative) Urine WBC (Auto) 10-30 H (0-5) /hpf Urine RBC (Auto) 0-4 (0-4) /hpf U Hyaline Cast (Auto) 5-10 H (0-5) /lpf U Epithel Cells (Auto) 10-20 H (0-5) /lpf Urine Bacteria (Auto) Negative (Negative) Ur Renal Epithelial Cell Not Reportable POC Stool Occult Blood (Negative) SARS-CoV-2, RNA, NAAT (NEGATIVE) Blood Type Antibody Screen 12/18/21 12/18/21 12/18/21 Range/Units 19:44 19:33 19:28 WBC (4.8-10.8) K/ul RBC (4.63-6.08) M/uL Hgb (14.0-18.0) g/dl Hct (40.1-51.0) % MCV (80.0-100.0) fL MCH (25.0-34.0) pg MCHC (32.0-36.0) g/dL RDW Std Deviation (36.4-46.3) fL RDW Coeff of Shaggy (11.5-14.5) % Plt Count (130-400) K/uL MPV (9.4-12.4) fL Immature Gran % (Auto) % Neut % (Auto) % Lymph % (Auto) % Harvey % (Auto) % Eos % (Auto) % Baso % (Auto) % Neut # (Auto) (1.4-6.5) K/uL Lymph # (Auto) (1.2-3.4) K/uL Harvey # (Auto) (0.24-0.82) K/uL Eos # (Auto) (0-0.50) K/uL Baso # (Auto) (0-0.2) K/uL Immature Gran # (Auto) (0.00-0.02) K/uL RBC Morphology PT (9.0-12.0) Seconds INR (0.9-1.1) APTT (21.0-31.0) Seconds PTT Ratio Sodium (136-145) mmol/L Potassium (3.5-5.1) mmol/L Chloride (98-107) mmol/L Carbon Dioxide (21-32) mmol/L Anion Gap (3-11) BUN (6-23) mg/dl Creatinine (0.6-1.4) mg/dl Est Cr Clr Drug Dosing ml/min Est GFR ( Amer) ml/min Est GFR (Non-Af Amer) ml/min BUN/Creatinine Ratio (10-20) Glucose (70-99(Fasting)) mg/dl Fasting Glucose (70-99) mg/dl Estimat Average Glucose mg/dl Hemoglobin A1c (4.5-5.6) % Calcium (8.5-10.1) mg/dl Total Bilirubin (0.2-1.0) mg/dl AST (13-39) U/L ALT (7-52) U/L Alkaline Phosphatase (34-104) U/L Troponin I High Sens (0-20) pg/ml Total Protein (6.0-8.3) gm/dl Albumin (3.4-5.0) gm/dl Globulin (2.5-4.0) gm/dl Albumin/Globulin Ratio (0.9-2) Lipase (11-82) U/L Urine Color Urine Appearance (Clear) Urine pH (4.5-7.5) Ur Specific [place] (1.000-1.030) Urine Protein (Negative) Urine Glucose (UA) (Negative) Urine Ketones (Negative) Urine Blood (Negative) Urine Nitrite (Negative) Urine Bilirubin (Negative) Urine Urobilinogen (Negative) Ur Leukocyte Esterase (Negative) Urine WBC (Auto) (0-5) /hpf Urine RBC (Auto) (0-4) /hpf U Hyaline Cast (Auto) (0-5) /lpf U Epithel Cells (Auto) (0-5) /lpf Urine Bacteria (Auto) (Negative) Ur Renal Epithelial Cell POC Stool Occult Blood Positive A (Negative) SARS-CoV-2, RNA, NAAT NEGATIVE (NEGATIVE) Blood Type O Positive Antibody Screen NEGATIVE 12/18/21 12/18/21 12/18/21 Range/Units 19:25 19:25 19:25 WBC 27.55 H (4.8-10.8) K/ul RBC 3.45 L (4.63-6.08) M/uL Hgb 10.8 L (14.0-18.0) g/dl Hct 30.9 L (40.1-51.0) % MCV 89.6 (80.0-100.0) fL MCH 31.3 (25.0-34.0) pg MCHC 35.0 (32.0-36.0) g/dL RDW Std Deviation 42.6 (36.4-46.3) fL RDW Coeff of Shaggy 13.2 (11.5-14.5) % Plt Count 383 (130-400) K/uL MPV 9.8 (9.4-12.4) fL Immature Gran % (Auto) 2.0 % Neut % (Auto) 82.0 % Lymph % (Auto) 12.7 % Harvey % (Auto) 2.9 % Eos % (Auto) 0.0 % Baso % (Auto) 0.4 % Neut # (Auto) 22.58 H (1.4-6.5) K/uL Lymph # (Auto) 3.49 H (1.2-3.4) K/uL Harvey # (Auto) 0.80 (0.24-0.82) K/uL Eos # (Auto) 0.00 (0-0.50) K/uL Baso # (Auto) 0.12 (0-0.2) K/uL Immature Gran # (Auto) 0.56 H (0.00-0.02) K/uL RBC Morphology PT 10.6 (9.0-12.0) Seconds INR 1.0 (0.9-1.1) APTT 20.4 L (21.0-31.0) Seconds PTT Ratio 0.7 Sodium 139 (136-145) mmol/L Potassium 5.0 (3.5-5.1) mmol/L Chloride 109 H (98-107) mmol/L Carbon Dioxide 20 L (21-32) mmol/L Anion Gap 10 (3-11) BUN 49 H (6-23) mg/dl Creatinine 2.69 H (0.6-1.4) mg/dl Est Cr Clr Drug Dosing 55.0 ml/min Est GFR ( Amer) 36.7 ml/min Est GFR (Non-Af Amer) 31.7 ml/min BUN/Creatinine Ratio 18.2 (10-20) Glucose 220 H (70-99(Fasting)) mg/dl Fasting Glucose (70-99) mg/dl Estimat Average Glucose mg/dl Hemoglobin A1c (4.5-5.6) % Calcium 8.9 (8.5-10.1) mg/dl Total Bilirubin 0.7 (0.2-1.0) mg/dl AST 13 (13-39) U/L ALT 25 (7-52) U/L Alkaline Phosphatase 49 (34-104) U/L Troponin I High Sens 4.7 (0-20) pg/ml Total Protein 6.4 (6.0-8.3) gm/dl Albumin 4.1 (3.4-5.0) gm/dl Globulin 2.3 L (2.5-4.0) gm/dl Albumin/Globulin Ratio 1.8 (0.9-2) Lipase 23 (11-82) U/L Urine Color Urine Appearance (Clear) Urine pH (4.5-7.5) Ur Specific [place] (1.000-1.030) Urine Protein (Negative) Urine Glucose (UA) (Negative) Urine Ketones (Negative) Urine Blood (Negative) Urine Nitrite (Negative) Urine Bilirubin (Negative) Urine Urobilinogen (Negative) Ur Leukocyte Esterase (Negative) Urine WBC (Auto) (0-5) /hpf Urine RBC (Auto) (0-4) /hpf U Hyaline Cast (Auto) (0-5) /lpf U Epithel Cells (Auto) (0-5) /lpf Urine Bacteria (Auto) (Negative) Ur Renal Epithelial Cell POC Stool Occult Blood (Negative) SARS-CoV-2, RNA, NAAT (NEGATIVE) Blood Type Antibody Screen
--- NOTE | 2021-12-19 14:55 | Anesthesiology Consultation ---
Date of Service December 19, 2021 Assessment & Plan Chart Review Chart Review: Acceptable Risk for Surgery and Patient NOT seen in Pre Admission Testing Consults Requested none ASA [id number] Proposed Anesthesia Anesthesia Type: MAC Risk / Benefits Reviewed With: PT / POA / Parent / Guardian, Accepts Plan and Informed Consent Obtained History Surgery Operation Date: 12/19/21 16:45 Proposed Procedures p Esophagogastroduodenoscopy Dr. Siddiqui - Mandeep Siddiqui Jr, MD Height/Weight Height: 5 ft 10 in Weight: 120 kg Allergies Allergy/AdvReac Type Severity Reaction Status Date / Time No Known Allergies Allergy Verified 12/19/21 14:36 Medications Home Medications Medication Instructions Recorded Confirmed Last Taken No Known Home Medications 12/18/21 12/18/21 Unknown Active Medications Generic Name Dose Route Start Last Admin Trade Name Freq PRN Reason Stop Dose Admin Lactated Ringer's 1,000 mls @ 125 mls/hr 12/18/21 23:05 12/19/21 07:09 Lr IV 12/19/21 15:04 125 mls/hr .Q8H JUANITA Administration Pantoprazole Sodium 40 mg/ 10 mls @ 5 mls/min 12/18/21 23:05 12/19/21 08:57 Syringe IV 01/17/22 23:04 5 mls/min BID JUANITA Administration NPO Date Last Intake of Fluids: 12/19/21 Time Last Intake of Fluids: 04:00 Date Last Intake of Solids: 12/18/21 Time Last Intake of Solids: 12:00 Past Medical History Medical History No significant past medical history Exercise / Class Metabolic Activity II 4-5 Yardwork/Stairs/Walk up hill Past Family History Family History Other No significant family history Past Surgical History Surgical History No significant past surgical history Past Anesthesia History No Hx of Anesthesia Complications and No Family Hx of Anesthesia Complications History of PONV No Hx of PONV and No Hx of Motion Sickness Social History Smoking Status: Current every day smoker Hx Alcohol Use: No Hx Substance Use: No Physical Exam Vital Signs Last Vital Signs Temp 37.1 C 12/19/21 14:29 Pulse 75 12/19/21 14:29 Resp 18 12/19/21 14:29 BP 110/61 12/19/21 14:29 Pulse Ox 97 12/19/21 14:29 O2 Del Method 12/19/21 14:29 Constitutional + obese ENMT Mouth: no dentition abnormality Thyromental Distance: > or= 3.5 Finger Breadths Mallampati Class: II Neck normal visual inspection Respiratory normal respiratory effort Auscultation: lungs clear to auscultation bilaterally Cardiovascular Rate/Rhythm: regular rate and regular rhythm Psychiatric Orientation: alert Testing Laboratory Results 12/19/21 07:18 12/19/21 07:18 PT 10.6 Seconds (9.0-12.0) 12/18/21 19:25 INR 1.0 (0.9-1.1) 12/18/21 19:25 APTT 20.4 Seconds (21.0-31.0) L 12/18/21 19:25 Hemoglobin A1c 5.5 % (4.5-5.6) 12/19/21 07:18 Urine Color Yellow 12/18/21 22:10 Urine Appearance Cloudy (Clear) A 12/18/21 22:10 Urine pH 7.0 (4.5-7.5) 12/18/21 22:10 Ur Specific [place] 1.014 (1.000-1.030) 12/18/21 22:10 Urine Protein 2+ (Negative) H 12/18/21 22:10 Urine Glucose (UA) Negative (Negative) 12/18/21 22:10 Urine Ketones Negative (Negative) 12/18/21 22:10 Urine Nitrite Negative (Negative) 12/18/21 22:10 Ur Leukocyte Esterase Negative (Negative) 12/18/21 22:10 Urine WBC (Auto) 10-30 /hpf (0-5) H 12/18/21 22:10 Urine RBC (Auto) 0-4 /hpf (0-4) 12/18/21 22:10 U Hyaline Cast (Auto) 5-10 /lpf (0-5) H 12/18/21 22:10 U Epithel Cells (Auto) 10-20 /lpf (0-5) H 12/18/21 22:10 Urine Bacteria (Auto) Negative (Negative) 12/18/21 22:10 Blood Type O Positive 12/18/21 19:28 Antibody Screen NEGATIVE 12/18/21 19:28 12/18/21 22:10 Urine Culture - Preliminary Urine,Clean Catch Pin-point growth present, reincubating.
--- NOTE | 2021-12-19 15:43 | GI REPORT ---
Patient Name: Bakari Etienne Procedure Date: 12/19/2021 3:24 PM Date of : 1995 Admit Type: Inpatient Age: 26 Gender: Male Attending MD: Mandeep Siddiqui MD Procedure: Upper GI endoscopy Providers: Mandeep Siddiqui MD Referring MD: Deepti Boyce Do Indications: Hematemesis Medicines: Propofol per Anesthesia Complications: No immediate complications. Estimated Blood Loss: Estimated blood loss: none. Procedure: Pre-Anesthesia Assessment: - Prior to the procedure, a History and Physical was performed, and patient medications and allergies were reviewed. The patient's tolerance of previous anesthesia was also reviewed. The risks and benefits of the procedure and the sedation options and risks were discussed with the patient. All questions were answered, and informed consent was obtained. Prior Anticoagulants: The patient has taken no previous anticoagulant or antiplatelet agents. ASA Grade Assessment: I - A normal, healthy patient. After reviewing the risks and benefits, the patient was deemed in satisfactory condition to undergo the procedure. After obtaining informed consent, the endoscope was passed under direct vision. Throughout the procedure, the patient's blood pressure, pulse, and oxygen saturations were monitored continuously. The Endoscope was introduced through the mouth, and advanced to the second part of duodenum. The upper GI endoscopy was accomplished without difficulty. The patient tolerated the procedure well. Findings: The esophagus was normal. One non-bleeding cratered gastric ulcer with pigmented material was found on the lesser curvature of the gastric antrum. The lesion was 25 mm in largest dimension. Biopsies were taken with a cold forceps for histology. The exam of the stomach was otherwise normal. The examined duodenum was normal. Impression: - Normal esophagus. - Non-bleeding gastric ulcer with pigmented material. Biopsied. - Normal examined duodenum. Recommendation: - Patient has a contact number available for emergencies. The signs and symptoms of potential delayed complications were discussed with the patient. Return to normal activities tomorrow. Written discharge instructions were provided to the patient. - Resume previous diet. - Continue present medications. - Await pathology results. Mandeep Siddiqui MD 12/19/2021 3:43:28 PM Note Initiated On: 12/19/2021 3:24 PM Number of Addenda: 0 I attest to the content of the Intraoperative Record and orders documented therein, exceptions below {[id number]}
[2021-12-19] MEDS ORDERED: PROPOFOL IV EMULSION 10 MG/ML 20 ML VIAL IV ONE (15:52)
[2021-12-19] MEDS ORDERED: LIDOCAINE 2% MPF LOCAL 5 ML VIAL INFIL ONE (15:52)
--- NOTE | 2021-12-19 16:19 | Anesthesiology Progress Note ---
Date of Service December 19, 2021 Anesthesia Post Procedure Vital Signs Vital Signs: Temp Pulse Pulse Resp BP BP Pulse Ox 12/19/21 16:15 77 16 108/78 100 12/19/21 16:01 82 16 102/53 L 100 12/19/21 15:49 37.0 C 84 16 101/63 99 12/19/21 14:29 37.1 C 75 18 110/61 97 12/19/21 13:30 79 18 95 12/19/21 13:30 110/62 12/19/21 13:00 84 19 98 12/19/21 13:00 107/59 L 12/19/21 12:51 109/68 12/19/21 12:50 78 22 99 12/19/21 12:30 85 21 98 12/19/21 12:30 102/68 12/19/21 12:00 83 20 96 12/19/21 12:00 108/62 12/19/21 11:30 87 16 97 12/19/21 11:30 109/67 12/19/21 11:00 84 18 98 12/19/21 11:00 117/60 12/19/21 10:30 114/55 L 12/19/21 10:30 69 15 99 12/19/21 10:00 73 19 100 12/19/21 10:00 106/55 L 12/19/21 09:30 79 19 100 12/19/21 09:30 114/63 12/19/21 09:00 82 14 99 12/19/21 09:00 107/61 12/19/21 08:30 106/57 L 12/19/21 08:30 79 17 98 12/19/21 08:00 74 17 95 12/19/21 08:00 111/50 L 12/19/21 07:30 112/55 L 12/19/21 07:30 72 17 99 12/19/21 07:00 70 15 96 12/19/21 07:00 105/63 12/19/21 06:50 74 20 130/61 98 12/19/21 06:28 81 20 109/54 L 98 12/19/21 05:51 94 H 20 97/54 L 99 12/19/21 04:38 82 20 83/51 L 92 12/19/21 03:48 85 20 105/51 L 93 12/19/21 02:26 86 20 84/46 L 95 12/19/21 00:44 90 20 95/44 L 92 12/18/21 23:46 78 20 90/47 L 98 12/18/21 23:38 12/18/21 23:04 88 20 85/43 L 98 12/18/21 22:00 101 H 18 107/24 L 100 12/18/21 20:43 86 20 107/54 L 100 12/18/21 20:15 88 20 95/54 L 96 12/18/21 19:51 83 20 90/46 L 100 12/18/21 19:32 96 12/18/21 19:31 20 96 12/18/21 19:30 84 20 75/39 L 96 12/18/21 19:06 36.5 C 86 20 66/45 L 95 Pulse Ox O2 Del Method O2 Del Method 12/19/21 16:15 Room Air 12/19/21 16:01 Room Air 12/19/21 15:49 Room Air 12/19/21 14:29 Room Air 12/19/21 13:30 12/19/21 13:30 12/19/21 13:00 12/19/21 13:00 12/19/21 12:51 12/19/21 12:50 12/19/21 12:30 12/19/21 12:30 12/19/21 12:00 12/19/21 12:00 12/19/21 11:30 12/19/21 11:30 12/19/21 11:00 12/19/21 11:00 12/19/21 10:30 12/19/21 10:30 12/19/21 10:00 12/19/21 10:00 12/19/21 09:30 12/19/21 09:30 12/19/21 09:00 12/19/21 09:00 12/19/21 08:30 12/19/21 08:30 12/19/21 08:00 12/19/21 08:00 12/19/21 07:30 12/19/21 07:30 12/19/21 07:00 12/19/21 07:00 12/19/21 06:50 Room Air 12/19/21 06:28 Room Air 12/19/21 05:51 Room Air 12/19/21 04:38 Room Air 12/19/21 03:48 Room Air 12/19/21 02:26 Room Air 12/19/21 00:44 Room Air 12/18/21 23:46 Room Air 12/18/21 23:38 98 Room Air 12/18/21 23:04 Room Air 12/18/21 22:00 Room Air 12/18/21 20:43 Room Air 12/18/21 20:15 Room Air 12/18/21 19:51 Room Air 12/18/21 19:32 Room Air 12/18/21 19:31 Room Air 12/18/21 19:30 Room Air 12/18/21 19:06 Room Air Transfer of Care Handoff Completed per policy Notes Mental Status: alert / awake / arousable Patient Amnestic to Procedure: Yes Nausea / Vomiting: adequately controlled Pain: adequately controlled Airway Patency, RR, SpO2: stable & adequate BP & HR: stable & adequate Hydration State: stable & adequate Anesthetic Complications: no major complications apparent and Pt Satisfied with anesthetic care
[2021-12-19 17:21] LABS: Hematocrit (blood only) 22.7 % (40.1-51.0); Hemoglobin 7.7 g/dl (14.0-18.0); Mean Corpuscular Hemoglobin 31.2 pg (25.0-34.0); Mean Corpuscular Hgb Conc 33.9 g/dL (32.0-36.0); Mean Corpuscular Volume 91.9 fL (80.0-100.0); Mean Platelet Volume 9.8 fL (9.4-12.4); Platelet Count 259 K/uL (130-400); RDW Coefficient of Variation 13.5 % (11.5-14.5); Red Blood Count 2.47 M/uL (4.63-6.08); White Blood Count 14.05 K/ul (4.8-10.8)
[2021-12-19 18:01] LABS: Basophils # (auto) 0.05 K/uL (0-0.2); Basophils % (auto) 0.4 %; Eosinophils # (auto) 0.06 K/uL (0-0.50); Eosinophils % (auto) 0.4 %; Immature Granulocytes % (auto) 0.7 %; Lymphocytes # (auto) 5.25 K/uL (1.2-3.4); Lymphocytes % (auto) 37.4 %; Monocytes # (auto) 0.58 K/uL (0.24-0.82); Monocytes % (auto) 4.1 %; Neutrophils # (auto) 8.01 K/uL (1.4-6.5)
[2021-12-20 07:19] LABS: Hematocrit (blood only) 22.7 % (40.1-51.0); Hemoglobin 8.1 g/dl (14.0-18.0); Mean Corpuscular Hemoglobin 32.3 pg (25.0-34.0); Mean Corpuscular Hgb Conc 35.7 g/dL (32.0-36.0); Mean Corpuscular Volume 90.4 fL (80.0-100.0); Mean Platelet Volume 9.8 fL (9.4-12.4); Platelet Count 269 K/uL (130-400); RDW Coefficient of Variation 13.5 % (11.5-14.5); RDW Standard Deviation 44.5 fL (36.4-46.3); Red Blood Count 2.51 M/uL (4.63-6.08); White Blood Count 9.89 K/ul (4.8-10.8)
[2021-12-20 07:58] LABS: Calcium 8.3 mg/dl (8.5-10.1); Creatinine Clr Calc Pharmacy 155.2 ml/min; Est GFR (African American) 138.1 ml/min; Est GFR (Non-African American) 119.1 ml/min; Potassium 3.8 mmol/L (3.5-5.1)
[2021-12-20] MEDS: PANTOprazole 40 MG in SYRINGE 0 ML IV SCH ×2 (08:14→21:53)
--- NOTE | 2021-12-20 09:08 | Discharge Summary ---
Date of Service December 21, 2021 Admission HPI Per Admitting Provider Bakari Etienne is a 26yo male with no significant past medical history presenting with one day of nausea with 3 episodes of hematemesis that started this AM. He reports bright red blood with presence of clots in the vomitus. He also has had several episodes of black, watery diarrhea. Patient reports feeling chills and tired. He also had dizziness and possible syncopal event while in the shower today. He has no additional complaints. Specifically denies fever, chills, cough, SOB, chest pain, abdominal pain. No sick contacts, recent travel. Patient does smoke cigarettes - appx 1 ppd. He does not drink alcohol or use NSAIDS or ASA. No history of prior GIB. 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 No additional complaints at this time. Upon arrival to the ER patient hypotensive at 66/45. He was administered IV Pepcid, Zofran, Protonix and 2L NSS with improvement in blood pressure. Most recently 107/54. ER course: Pepcid 20mg IV, Zofran 4mg IV, Protonix gtt, NSS x 2L Admission Exam Per Admitting Provider General: patient resting comfortably, NAD, non-toxic in appearance, AA&O x 4 Skin: warm, dry, intact, no rashes or lesions HEENT: NC/AT, PERRL, EOMI, anicteric sclera, conjunctiva without injection, external ear normal to inspection and nontender, nares patent, moist mucus membranes, dentition intact, no oropharyngeal lesions, neck supple, trachea midline, no LAD, no thyromegaly, no JVD Heart: +S1/S2, regular, no m/r/g Lungs: equal air entry bilaterally, no rales/rhonchi/wheezes Abd: +BS, soft, NT/ND, no masses/organomegaly/ascites Ext: warm, 2+ pulses in UE/LE bilaterally, no clubbing/cyanosis or edema Neuro: nonfocal, patient AA&O x 4, speech intact, no facial droop, moving all extremities on command with equal strength 5/5 Principal Diagnosis Hematemesis, upper GI bleed, GI malignancy Discharge Exam General: well-appearing obese male in no acute distress HEENT: moist mucous membranes, no blood noted in pharynx on inspection CV: RRR, normal S1 and S2, no murmurs appreciated, no JVD Resp: CTAB, unlabored respirations Abd: soft, nontender, nondistended, normoactive bowel sounds, no guarding or rebound Extremities: capillary refill <2s of b/l UE and LE, radial/pedal pulses 2+ b/l Skin: warm, dry, no central or peripheral pallor Discharge Data Allergies Allergy/AdvReac Type Severity Reaction Status Date / Time No Known Allergies Allergy Verified 12/19/21 14:36 Consultations 12/18/21 20:20 ED Decision to Admit Stat 12/18/21 23:05 Consult Gastroenterology Routine Procedures Performed Operation Date: 12/19/21 16:45 Actual Procedures p EGD Biopsy Cytology - Mandeep Siddiqui Jr, MD Hospital Course (1) Nausea vomiting and diarrhea: 26 yo M, current smoker with 5 pack year history, admitted for hematemesis and melena. Acute blood loss anemia 2/2 hematemesis, upper gastrointestinal hemorrhage -Hypotensive on admission, given multiple fluid boluses -Suspect likely due to peptic ulcer disease 2/2 smoking -PT/INR normal, stool GI PCR panel -Hgb 10.8 on admission, 8.1 to 7.8 today- has not required any blood transfusions -GI consulted -EGD 12/19- normal esophagus, non-bleeding gastric ulcer with pigmented material -EUS 12/21 for cancer workup -During procedure, large amount of blood with clotting noted in gastric fundus/body, hemostatic spray applied -Malignant 2 cm mass of antrum- gastric adenocarcinoma noted- T2 Nx Mx by EUS criteria -Recommend transfer to tertiary care for interventional radiology + surgical intervention -Transfer accepted to [facility] under accepting hospitalist Dr. Fariba Valle -Records/images sent to [facility] -Hgb stable at 7.8 -> 7.8, hemodynamically stable at time of discharge- did not receive any blood transfusions during stay -Transferred 12/21 Gastric adenocarcinoma -Gastric ulcer pathology- initial appearance suspicious for poorly differentiated adenocarcinoma -Pt does report family history of GI malignancy in 2 maternal uncles, of [place] ethnicity -One in his late 30s/40s, other received tumor resection -Oncology consulted -CTAP -Bowel wall thickening, 1.8 cm ulceration at antrum- mild inflammatory change, trace fluid -Subcentimeter lymph nodes adjacent to gastric mass, may represent early metastatic change -Chest CT- unremarkable -Further testing pending- LEE/FISH/PDL1/Her2/MSI per pathology -Endoscopic ultrasound 12/21, findings as above Vitamin B12 deficiency -B12 level of 167 -Continue B12 supplementation- 1000 mcg PO daily Acute kidney injury -BUN 49, Cr 2.69 on admission -Suspect this was pre-renal azotemia from volume depletion 2/2 UGIB, GI losses -Resolved to Cr 0.9 with IVF resuscitation Tobacco use disorder -Likely cause of his GI bleed -Pt interested in gradually reducing use -Encourage smoking cessation treatment as outpatient FENGI: NPO Code status: Full DVT ppx: Ambulation Isolation: None Dispo: Medical/surgical with telemetry, transferred to [place] on 12/21 (2) GIB (gastrointestinal bleeding): (3) HALIE (acute kidney injury): Total Time Total Time Spent Total Time Spent (In Minutes): 30 Discharge Plan Discharge Items Patient Disposition: Transfer Acute Care Hospital Reason For Visit: HYPOTENSION, EGIB? Discharge Diagnosis: Acute upper GI bleed, potential GI malignancy Activity: Resume your previous activity Non-emergency contact: Primary Care Provider, Deputy County Counsel and Oncologist Call non-emergency contact if: you have any medication questions, your symptoms worsen, your pain is worsening and you have a fever Follow-up/Referrals: PCP,NO [Primary Care Provider] - Diet: Regular Addtl Attending Provider Instructions: 26 yo M, current smoker with 5 pack year history, admitted for hematemesis and melena. Acute blood loss anemia 2/2 hematemesis, upper gastrointestinal hemorrhage -Hypotensive on admission, given multiple fluid boluses -Suspect likely due to peptic ulcer disease 2/2 smoking -PT/INR normal, stool GI PCR panel -Hgb 10.8 on admission, 8.1 to 7.8 today- has not required any blood transfusions -GI consulted -EGD 12/19- normal esophagus, non-bleeding gastric ulcer with pigmented material -EUS 12/21 for cancer workup -During procedure, large amount of blood with clotting noted in gastric fundus/body, hemostatic spray applied -Malignant 2 cm mass of antrum- gastric adenocarcinoma noted- T2 Nx Mx by EUS criteria -Recommend transfer to tertiary care for interventional radiology + surgical intervention -Transfer accepted to [facility] under accepting hospitalist Dr. Fariba Valle -Records/images sent to [facility] -Transferred 12/21 -Hgb stable at 7.8 -> 7.8, hemodynamically stable at time of discharge- did not receive any blood transfusions Gastric adenocarcinoma -Gastric ulcer pathology- initial appearance suspicious for poorly differentiat ed adenocarcinoma -Pt does report family history of GI malignancy in 2 maternal uncles, of [place] ethnicity -One in his late 30s/40s, other received tumor resection -Oncology consulted -CTAP -Bowel wall thickening, 1.8 cm ulceration at antrum- mild inflammatory change, trace fluid -Subcentimeter lymph nodes adjacent to gastric mass, may represent early metastatic change -Chest CT- unremarkable -Further testing pending- LEE/FISH/PDL1/Her2/MSI per pathology -Endoscopic ultrasound 12/21, findings as above Vitamin B12 deficiency -B12 level of 167 -Continue B12 supplementation- 1000 mcg PO daily Acute kidney injury -BUN 49, Cr 2.69 on admission -Suspect this was pre-renal azotemia from volume depletion 2/2 UGIB, GI losses -Resolved to Cr 0.9 with IVF resuscitation Tobacco use disorder -Likely cause of his GI bleed -Pt interested in gradually reducing use -Encourage smoking cessation treatment as outpatient FENGI: NPO Code status: Full DVT ppx: Ambulation Isolation: None Dispo: Medical/surgical with telemetry, transferred to [place] on 12/21 Pending Studies at Discharge: Yes Stand-Alone Forms: My [facility] [employer], Smoking Cessation Skilled Items Patient informed of condition?: Yes DNR: No Discharge Level of Care: Other Communicable Disease: No Discharge Prognosis: Stable Lines: None Urinary Catheter: No Medications and DC Order Prescriptions: New cyanocobalamin (vitamin B-12) 500 mcg Tablet 1,000 mcg PO DAILY Qty: 0 0RF Discharge Orders: Discharge Order (Routine); Ordered 12/21/21 Ordered By: Annabella Hu Admission Data Admit Date/Time: 12/18/21 20:47 Attending Provider: Margo Trinidad Admit Provider: Deepti Boyce Primary Care Provider: PCP,NO Other Providers: Deepti Boyce ; Mandeep Siddiqui Jr ; Odalys Casper Supervising Physician Co-Signing Physician Notes Resident Physician Supervision Note: I independently interviewed and examined the patient and verified the barrett history and physical, reviewed labs and image studies and agree with resident findings and care plan. Resident Activity Tracking Resident Involvement: Resident Care Provided Care Provided: Adult Hospital Medicine
[2021-12-20] MEDS ORDERED: OPTIRAY 350 100ml IV ONE (13:07)
[2021-12-20 13:10] LABS: Carcinoembryonic Antigen 0.5 ng/ml (0-2.5)
[2021-12-20 13:14] LABS: Ferritin 63.1 ng/ml (8-388)
[2021-12-20 13:19] LABS: Folate (Folic Acid) 9.97 ng/ml (>5.38)
--- NOTE | 2021-12-20 13:19 | CT Scan Report ---
CT chest diagnostic w con CLINICAL HISTORY: Cancer staging, possible GI cancer TECHNIQUE: Multidetector row helical CT of the chest was performed with intravenous contrast. Coronal and sagittal reformations were obtained. Automated dose lowering techniques and/or adjustment accord ing to patient size were utilized for this exam. CT DOSE: 1766.57 mGycm Comparison: Comparison is made to chest radiograph 12/18/2021 FINDINGS: Lungs and pleura: Atelectasis is seen in the dependent portions of the lungs. No suspicious pulmonary nodules are seen. Heart and pericardium: Heart size is normal. No pericardial effusion. Vessels: Unremarkable. Mediastinum and monica: Anterior mediastinal density is seen compatible with residual thymic tissue, ap propriate for age. Chest wall and lower neck: Small thyroid nodules are noted which do not require follow-up by ACR steve bennett. Abdomen: For findings below the diaphragm, please refer to CT of the abdomen dated the same. Bones: Unremarkable. IMPRESSION: No suspicious findings to suggest metastatic disease above the diaphragm. No acute abnormalities. ACT 112: Negative or not required by law. Electronically signed by: Darío Smith M.D. 12/20/2021 1:17 PM
--- NOTE | 2021-12-20 13:44 | Oncology Consultation ---
Date of Consultation December 20, 2021 Assessment & Plan (1) Gastric cancer: (2) Anemia: (3) B12 deficiency: Plan Pleasant 26 year old gentleman who is originally from [place] with a significant family history of gastric cancer who presented with GI bleeding for which EGD was performed yesterday and revealed gastric antrum ulcer. Biopsy revealed poorly differentiated gastric cancer. CT CAP revealed subcentimeter lymph nodes in upper abdomen with no evidence of distant metastatic disease. -Recommend Endoscopic ultrasound for staging -Anemia studies revealed low B12 level. Recommend parenteral supplementation. -Next generation sequencing on tumor sample to assess for PDL1, Her2, MSI status (ordered by pathology) -May need staging laparoscopy (by surgical oncologist) -Genetic testing for hereditary syndromes given significant family history of gastric cancer -Treatment options will depend on staging from EUS. Usually neoadjuvant Chemotherapy with FLOT chemotherapy followed by surgery and adjuvant chemotherapy. -Patient is considering going to [place] for treatment since he has no family in the . If he decides to receive treatment here, will refer him to tertiary center for surgical oncology evaluation. Thank you for this consult. Will await patent's decision on whether he will get treatment in the or [place]. Feel free to call if you have any questions History of Present Illness Reason for Consultation: Gastric cancer Attending Physician: Margo Trinidad MD History of Present Illness Mr. Etienne is a pleasant 26-year-old gentleman who presented to the ER at [facility] with nausea, vomiting, hematemesis and hematochezia. He was noted to have anemia with hemoglobin of 10.8 which decreased to 7.6. He underwent EGD on 12/19/2021 which revealed one non-bleeding cratered gastric ulcer with pigmented material in the lesser curvature of the gastric antrum measuring 25mm in largest dimension. Biopsy of ulcer per discussion with pathology (final report pending at the time of this note) revealed poorly differentiated adenocarcinoma. CT Chest abdomen and pelvis obtained today revealed focal area of abnormal bowel wall thickening with associated 1.8 cm ulceration at the gastric antrum demonstrating mild surrounding inflammatory change and trace fluid as well as few subcentimeter lymph nodes within the upper abdomen adjacent to the gastric mass. No evidence of distant metastatic disease was noted . He endorses 10lbs weight loss. Denies chest pain, shortness of breath. He states that his 2 maternal uncles were both diagnosed with gastric cancer in their late 30s/early 40s. Smokes 1ppd of cigarettes. Allergies Allergy/AdvReac Type Severity Reaction Status Date / Time No Known Allergies Allergy Verified 12/19/21 14:36 Home Medications Medication Instructions Recorded Confirmed Type No Known Home Medications 12/18/21 12/18/21 History Patient History Medical History No significant past medical history Surgical History No significant past surgical history Family History Other No significant family history Social History Smoking Status: Current every day smoker Tobacco Type: Cigarettes Hx Alcohol Use: No Hx Substance Use: No Preferred Language: Armenian Communication Ability: Effective Segmental Paver Installer Required: No Beliefs That Will Affect Care: None Current Living Situation: Other Current Living Situation Comment: Roomates Feels Safe at Home: Yes Assistive Devices: None Review of Systems Review of Systems: All systems reviewed & are unremarkable except as noted in HPI & below Physical Exam Constitutional: well developed and well nourished Eyes: PERRL, conjunctivae normal, anicteric sclerae Respiratory: normal respiratory effort, lungs clear to auscultation Cardiovascular: RRR, no murmur, no edema Gastrointestinal (Abdomen): normal bowel sounds, soft, nontender, no hepatosplenomegaly Musculoskeletal: no cyanosis or clubbing, extremities motor strength 5/5 Lymphatic: no cervical or axillary lymphadenopathy Results & Data ([facility]) Vital Signs (Past 12 Hours) Vital Signs Temp Pulse Pulse Resp BP Pulse Ox O2 Del Method 12/20/21 10:43 75 12/20/21 07:04 37.3 C 74 18 104/63 98 Room Air 12/20/21 03:01 36.6 C 78 17 110/68 98 Room Air Diagnostic Findings ABDOMEN AND PELVIS CT WITH IV CONTRAST CT DOSE: HISTORY: Gastric cancer. TECHNIQUE: Multiaxial CT images of the abdomen and pelvis were performed following the use of intravenous contrast. A dose lowering technique was utilized adhering to the principles of ALARA. COMPARISON STUDY: None. FINDINGS: There are trace bilateral pleural effusions. Please refer to the same day chest CT for further evaluation of the lung bases. No suspicious lytic or blastic osseous lesions. Mild hepatic steatosis. No hepatic masses. The main portal vein is patent. The gallbladder, pancreas, spleen, adrenal glands, and kidneys are unremarkable. No hydronephrosis. Normal caliber abdominal aorta. No retroperitoneal or pelvic lymphadenopathy. The bladder is unremarkable. No evidence for bowel obstruction. Normal appendix. There is abnormal bowel wall thickening within the gastric antrum with a 1.8 cm focal ulceration best seen on image 93. There is mild surrounding inflammatory change and trace fluid. However, there is no pneumoperitoneum to suggest a perforation at this time. This is consistent with the patient's known gastric mass. There are few adjacent subcentimeter lymph nodes at the lesser curvature of the stomach and adjacent to the pylorus on images 88 through 115. The dominant lymph node measures 8 mm. Although subcentimeter in short axis diameter, the close proximity of these lymph nodes to the known gastric lesion could represent early metastatic change. IMPRESSION: 1. Focal area of abnormal bowel wall thickening with associated 1.8 cm ulceration at the gastric antrum demonstrating mild surrounding inflammatory change and trace fluid. This is consistent with the patient's known gastric mass. There is no pneumoperitoneum at this time to suggest a perforation. 2. There are few subcentimeter lymph nodes within the upper abdomen adjacent to the gastric mass. These technically do not meet CT criteria for pathologic involvement given the subcentimeter size, however, the close proximity of these lymph nodes to the known gastric lesion could represent early metastatic change. These bear watching on future examinations. 3. No hepatic masses. 4. Trace bilateral pleural effusions. CT chest diagnostic w con CLINICAL HISTORY: Cancer staging, possible GI cancer TECHNIQUE: Multidetector row helical CT of the chest was performed with intravenous contrast. Coronal and sagittal reformations were obtained. Automated dose lowering techniques and/or adjustment according to patient size were utilized for this exam. CT DOSE: 1766.57 mGycm Comparison: Comparison is made to chest radiograph 12/18/2021 FINDINGS: Lungs and pleura: Atelectasis is seen in the dependent portions of the lungs. No suspicious pulmonary nodules are seen. Heart and pericardium: Heart size is normal. No pericardial effusion. Vessels: Unremarkable. Mediastinum and monica: Anterior mediastinal density is seen compatible with residual thymic tissue, appropriate for age. Chest wall and lower neck: Small thyroid nodules are noted which do not require follow-up by ACR criteria. Abdomen: For findings below the diaphragm, please refer to CT of the abdomen dated the same. Bones: Unremarkable. IMPRESSION: No suspicious findings to suggest metastatic disease above the diaphragm. No acute abnormalities. (1) Anemia Anemia type: unspecified type Qualified Code(s): D64.9 - Anemia, unspecified
--- NOTE | 2021-12-20 14:03 | Gastroenterology Progress Note ---
Date of Service December 20, 2021 Assessment & Plan (1) GIB (gastrointestinal bleeding): Plan: Gastric cancer. He is deciding whether he wants to get EUS here or in [place]. I suggested in [place] Admission and Anticipated Discharge Date Admission Date: December 18, 2021 Subjective Patient feels well. Pathology unfortunately shows poorly differentiated cancer. Needs EUS. Patient is going to go back to [place] for treatment Physical Exam Constitutional: WD/WN, vitals as above Results & Data ([facility]) Vital Signs (Past 12 Hours) Vital Signs Temp Pulse Pulse Resp BP Pulse Ox O2 Del Method 12/20/21 10:43 75 12/20/21 07:04 37.3 C 74 18 104/63 98 Room Air 12/20/21 03:01 36.6 C 78 17 110/68 98 Room Air
--- NOTE | 2021-12-20 15:04 | CT Scan Report ---
ABDOMEN AND PELVIS CT WITH IV CONTRAST CT DOSE: HISTORY: Gastric cancer. TECHNIQUE: Multiaxial CT images of the abdomen and pelvis were performed following the use of intrave nous contrast. A dose lowering technique was utilized adhering to the principles of ALARA. COMPARISON STUDY: None. FINDINGS: There are trace bilateral pleural effusions. Please refer to the same day chest CT for furt her evaluation of the lung bases. No suspicious lytic or blastic osseous lesions. Mild hepatic steato sis. No hepatic masses. The main portal vein is patent. The gallbladder, pancreas, spleen, adrenal gl ands, and kidneys are unremarkable. No hydronephrosis. Normal caliber abdominal aorta. No retroperito sarah or pelvic lymphadenopathy. The bladder is unremarkable. No evidence for bowel obstruction. Inez l appendix. There is abnormal bowel wall thickening within the gastric antrum with a 1.8 cm focal ulc eration best seen on image 93. There is mild surrounding inflammatory change and trace fluid. However , there is no pneumoperitoneum to suggest a perforation at this time. This is consistent with the pat olivia's known gastric mass. There are few adjacent subcentimeter lymph nodes at the lesser curvature o f the stomach and adjacent to the pylorus on images 88 through 115. The dominant lymph node measures 8 mm. Although subcentimeter in short axis diameter, the close proximity of these lymph nodes to the known gastric lesion could represent early metastatic change. IMPRESSION: 1. Focal area of abnormal bowel wall thickening with associated 1.8 cm ulceration at the gastric antr um demonstrating mild surrounding inflammatory change and trace fluid. This is consistent with the pa kasandra's known gastric mass. There is no pneumoperitoneum at this time to suggest a perforation. 2. There are few subcentimeter lymph nodes within the upper abdomen adjacent to the gastric mass. The se technically do not meet CT criteria for pathologic involvement given the subcentimeter size, howev er, the close proximity of these lymph nodes to the known gastric lesion could represent early metast atic change. These bear watching on future examinations. 3. No hepatic masses. 4. Trace bilateral pleural effusions. ACT 112: Negative or not required by law. Electronically signed by: Alen Morris M.D. 12/20/2021 3:02 PM
--- NOTE | 2021-12-20 16:06 | Hospitalist Progress Note ---
Date of Service December 20, 2021 Assessment & Plan (1) Nausea vomiting and diarrhea: Plan: 26 yo M, current smoker with 5 pack year history, admitted for hematemesis and melena. Potential malignancy- gastric adenocarcinoma -Gastric ulcer pathology- initial appearance suspicious for poorly differentiated adenocarcinoma -Pt does report family history of GI malignancy in 2 maternal uncles -One in his late 30s/40s, other received tumor resection -Oncology consulted -CTAP -Bowel wall thickening, 1.8 cm ulceration at antrum- mild inflammatory change, trace fluid -Subcentimeter lymph nodes adjacent to gastric mass, may represent early metastatic change -Chest CT- unremarkable -Endoscopic ultrasound scheduled for 12/21 -Trend CBC, CMP Acute hematemesis with upper gastrointestinal hemorrhage Acute blood loss anemia -Hypotensive on admission, given multiple fluid boluses -Suspect likely due to peptic ulcer disease 2/2 smoking -PT/INR normal, stool GI PCR panel -Hgb 10.8 on admission, 8.1 today- has not required any blood transfusions -Treated supportively with IVF, Protonix -GI consulted -EGD 12/19- normal esophagus, non-bleeding gastric ulcer with pigmented material Vitamin B12 deficiency -B12 level of 167 -Initiate B12 supplementation- 1000 mcg PO daily Acute kidney injury -BUN 49, Cr 2.69 on admission -Suspect this was pre-renal azotemia from volume depletion 2/2 UGIB, GI losses -Resolved to Cr 0.9 with IVF resuscitation -Discontinued fluids, encourage oral hydration Tobacco use disorder -Likely cause of his GI bleed -Pt interested in gradually reducing use -Encourage smoking cessation treatment as outpatient FENGI: Regular diet, NPO midnight Code status: Full DVT ppx: Ambulation Isolation: None Dispo: Medical/surgical with telemetry (2) GIB (gastrointestinal bleeding): (3) HALIE (acute kidney injury): Admission and Anticipated Discharge Date Admission Date: December 18, 2021 Supervising Physician Co-Signing Physician Notes Resident Physician Supervision Note: I independently interviewed and examined the patient and verified the barrett history and physical, reviewed labs and image studies and agree with resident findings and care plan. Subjective No acute events overnight. Pt feels well, denies any acute complaints- no further hematemesis, melena, abdominal pain. Tolerating meals well. Review of Systems Review of Systems: Per subjective Physical Exam Physical Exam: General: well-appearing obese male in no acute distress HEENT: moist mucous membranes, no blood noted in pharynx on inspection CV: RRR, normal S1 and S2, no murmurs appreciated, no JVD Resp: CTAB, unlabored respirations Abd: soft, nontender, nondistended, normoactive bowel sounds, no guarding or rebound Extremities: capillary refill <2s of b/l UE and LE, radial/pedal pulses 2+ b/l Skin: warm, dry, no central or peripheral pallor Results & Data Results & Data ([facility]) Vital Signs (Past 12 Hours) Vital Signs Temp Pulse Pulse Resp BP Pulse Ox O2 Del Method 12/20/21 15:46 36.7 C 73 18 110/70 98 Room Air 12/20/21 10:43 75 12/20/21 07:04 37.3 C 74 18 104/63 98 Room Air Resident Activity Tracking Resident Involvement: Resident Care Provided Care Provided: Adult Hospital Medicine
[2021-12-21 08:06] LABS: Basophils # (auto) 0.05 K/uL (0-0.2); Basophils % (auto) 0.7 %; Eosinophils # (auto) 0.08 K/uL (0-0.50); Eosinophils % (auto) 1.1 %; Hematocrit (blood only) 22.9 % (40.1-51.0); Hemoglobin 7.8 g/dl (14.0-18.0); Immature Granulocytes # (auto) 0.04 K/uL (0.00-0.02); Immature Granulocytes % (auto) 0.5 %; Lymphocytes # (auto) 3.34 K/uL (1.2-3.4); Lymphocytes % (auto) 44.9 %; Mean Corpuscular Hemoglobin 30.7 pg (25.0-34.0); Mean Corpuscular Hgb Conc 34.1 g/dL (32.0-36.0); Mean Corpuscular Volume 90.2 fL (80.0-100.0); Mean Platelet Volume 9.6 fL (9.4-12.4); Monocytes # (auto) 0.27 K/uL (0.24-0.82); Monocytes % (auto) 3.6 %; Neutrophils # (auto) 3.66 K/uL (1.4-6.5); Neutrophils % (auto) 49.2 %; Platelet Count 256 K/uL (130-400); RDW Coefficient of Variation 13.4 % (11.5-14.5); RDW Standard Deviation 43.2 fL (36.4-46.3); Red Blood Count 2.54 M/uL (4.63-6.08); White Blood Count 7.44 K/ul (4.8-10.8)
[2021-12-21 08:32] LABS: Polychromasia 1+
[2021-12-21 08:42] LABS: Albumin Globulin Ratio 1.7 (0.9-2); Albumin Level 3.8 gm/dl (3.4-5.0); BUN Creatinine Ratio 18.7 (10-20); Bilirubin,Total 0.4 mg/dl (0.2-1.0); Calcium 8.4 mg/dl (8.5-10.1); Est GFR (African American) 136.2 ml/min; Est GFR (Non-African American) 117.5 ml/min; Globulin 2.2 gm/dl (2.5-4.0); Potassium 3.8 mmol/L (3.5-5.1)
[2021-12-21] MEDS ORDERED: CYANOCOBALAMIN (B-12) 2,500 MCG TABLET SL SCH (09:00)
[2021-12-21] MEDS ORDERED: MIDAZOLAM HCL 1 MG/ML 2ML VIAL ONE (10:16)
--- NOTE | 2021-12-21 10:16 | History & Physical Bridge Note ---
Date of Service December 21, 2021 History & Physical Bridge Note I have examined the patient, reviewed the History & Physical and in the interval since the performance of the History & Physical I have noted the following changes of clinical significance: no changes noted. The patient was recently diagnosed with gastric cancer by Dr. Siddiqui with [facility] gastroenterology. Endoscopic ultrasound has been requested by the GI service in addition to oncology service for staging of the malignancy. I discussed the risks and benefits of endoscopic ultrasound with the patient to include bleeding infection perforation pain and need for follow-up studies. Pathology 12/19/21 Stomach, biopsy: - Poorly differentiated adenocarcinoma, poorly cohesive type. - HER-2/jaime overexpression by immunohistochemistry: Negative (score 0). - Microsatellite stable by immunohistochemistry. - Helicobacter pylori immunohistochemistry: Negative. - See comment. CT 12/20/[address] WITH IV CONTRAST CT DOSE: HISTORY: Gastric cancer. TECHNIQUE: Multiaxial CT images of the abdomen and pelvis were performed following the use of intravenous contrast. A dose lowering technique was utilized adhering to the principles of ALARA. COMPARISON STUDY: None. FINDINGS: There are trace bilateral pleural effusions. Please refer to the same day chest CT for further evaluation of the lung bases. No suspicious lytic or blastic osseous lesions. Mild hepatic steatosis. No hepatic masses. The main portal vein is patent. The gallbladder, pancreas, spleen, adrenal glands, and kidneys are unremarkable. No hydronephrosis. Normal caliber abdominal aorta. No retroperitoneal or pelvic lymphadenopathy. The bladder is unremarkable. No evidence for bowel obstruction. Normal appendix. There is abnormal bowel wall thickening within the gastric antrum with a 1.8 cm focal ulceration best seen on image 93. There is mild surrounding inflammatory change and trace fluid. However, there is no pneumoperitoneum to suggest a perforation at this time. This is consistent with the patient's known gastric mass. There are few adjacent subcentimeter lymph nodes at the lesser curvature of the stomach and adjacent to the pylorus on images 88 through 115. The dominant lymph node measures 8 mm. Although subcentimeter in short axis diameter, the close proximity of these lymph nodes to the known gastric lesion could represent early metastatic change. IMPRESSION: 1. Focal area of abnormal bowel wall thickening with associated 1.8 cm ulceration at the gastric antrum demonstrating mild surrounding inflammatory change and trace fluid. This is consistent with the patient's known gastric mass. There is no pneumoperitoneum at this time to suggest a perforation. 2. There are few subcentimeter lymph nodes within the upper abdomen adjacent to the gastric mass. These technically do not meet CT criteria for pathologic involvement given the subcentimeter size, however, the close proximity of these lymph nodes to the known gastric lesion could represent early metastatic change. These bear watching on future examinations. 3. No hepatic masses. 4. Trace bilateral pleural effusions. CT 12/20/21 CT chest diagnostic w con CLINICAL HISTORY: Cancer staging, possible GI cancer TECHNIQUE: Multidetector row helical CT of the chest was performed with intravenous contrast. Coronal and sagittal reformations were obtained. Automated dose lowering techniques and/or adjustment according to patient size were u tilized for this exam. CT DOSE: 1766.57 mGycm Comparison: Comparison is made to chest radiograph 12/18/2021 FINDINGS: Lungs and pleura: Atelectasis is seen in the dependent portions of the lungs. No suspicious pulmonary nodules are seen. Heart and pericardium: Heart size is normal. No pericardial effusion. Vessels: Unremarkable. Mediastinum and monica: Anterior mediastinal density is seen compatible with residual thymic tissue, appropriate for age. Chest wall and lower neck: Small thyroid nodules are noted which do not require follow-up by ACR criteria. Abdomen: For findings below the diaphragm, please refer to CT of the abdomen dated the same. Bones: Unremarkable. IMPRESSION: No suspicious findings to suggest metastatic disease above the diaphragm. No acute abnormalities.
[2021-12-21] MEDS ORDERED: ONDANSETRON INJ 2 MG/ML 2 ML VIAL ONE (10:19)
[2021-12-21] MEDS ORDERED: LIDOCAINE 2% MPF LOCAL 5 ML VIAL INFIL ONE (10:19)
[2021-12-21] MEDS ORDERED: PROPOFOL IV EMULSION 10 MG/ML 20 ML VIAL IV ONE ×2 (10:19→10:45)
--- NOTE | 2021-12-21 10:24 | Anesthesiology Consultation ---
Date of Service December 21, 2021 Assessment & Plan Chart Review Chart Review: Acceptable Risk for Surgery and Patient NOT seen in Pre Admission Testing ASA ASA3 Proposed Anesthesia Anesthesia Type: MAC Risk / Benefits Reviewed With: PT / POA / Parent / Guardian, Accepts Plan and Informed Consent Obtained History Surgery Operation Date: 12/19/21 16:45 Proposed Procedures p Esophagogastroduodenoscopy Dr. Artur Siddiqui Jr, MD Operation Date: 12/21/21 11:45 Proposed Procedures p Endoscopic Ultrasonography [place] - Olga Rodriguez DO Height/Weight Height: 5 ft 10 in Weight: 105.1 kg Allergies Allergy/AdvReac Type Severity Reaction Status Date / Time No Known Allergies Allergy Verified 12/19/21 14:36 Medications Home Medications Medication Instructions Recorded Confirmed Last Taken No Known Home Medications 12/18/21 12/18/21 Unknown Active Medications Generic Name Dose Route Start Last Admin Trade Name Freq PRN Reason Stop Dose Admin Pantoprazole Sodium 40 mg/ 10 mls @ 5 mls/min 12/18/21 23:05 12/20/21 21:53 Syringe IV 01/17/22 23:04 5 mls/min BID JUANITA Administration NPO Date Last Intake of Fluids: 12/20/21 Time Last Intake of Fluids: 22:00 Date Last Intake of Solids: 12/20/21 Time Last Intake of Solids: 18:00 Past Medical History Medical History No significant past medical history Exercise / Class Metabolic Activity II 4-5 Yardwork/Stairs/Walk up hill Past Family History Family History Other No significant family history Past Surgical History Surgical History No significant past surgical history Past Anesthesia History No Hx of Anesthesia Complications and No Family Hx of Anesthesia Complications History of PONV No Hx of PONV and No Hx of Motion Sickness Social History Smoking Status: Current every day smoker tobacco type: cigarettes Do You Dip or Chew Tobacco: No Hx Alcohol Use: No Hx Substance Use: No Review of Systems denies fever/cough/ colds/ chest pain/ SOB/ EDILBERTO denies EDILBERTO Physical Exam Vital Signs Last Vital Signs Temp 36.9 C 12/21/21 10:00 Pulse 76 12/21/21 10:00 Resp 20 12/21/21 10:00 BP 117/57 L 12/21/21 10:00 Pulse Ox 98 12/21/21 10:00 O2 Del Method 12/21/21 10:00 ENMT Mouth: no TMJ abnormality and no dentition abnormality Thyromental Distance: > or= 3.5 Finger Breadths Mallampati Class: II Neck neck extension not limited Respiratory normal respiratory effort; no respiratory distress Auscultation: lungs clear to auscultation bilaterally Cardiovascular Rate/Rhythm: regular rate and regular rhythm Neurologic moves all extremities Psychiatric Orientation: alert and oriented x 3 Testing Laboratory Results 12/21/21 07:52 12/21/21 07:52 PT 10.6 Seconds (9.0-12.0) 12/18/21 19:25 INR 1.0 (0.9-1.1) 12/18/21 19:25 APTT 20.4 Seconds (21.0-31.0) L 12/18/21 19:25 Hemoglobin A1c 5.5 % (4.5-5.6) 12/19/21 07:18 Urine Color Yellow 12/18/21 22:10 Urine Appearance Cloudy (Clear) A 12/18/21 22:10 Urine pH 7.0 (4.5-7.5) 12/18/21 22:10 Ur Specific Round O 1.014 (1.000-1.030) 12/18/21 22:10 Urine Protein 2+ (Negative) H 12/18/21 22:10 Urine Glucose (UA) Negative (Negative) 12/18/21 22:10 Urine Ketones Negative (Negative) 12/18/21 22:10 Urine Nitrite Negative (Negative) 12/18/21 22:10 Ur Leukocyte Esterase Negative (Negative) 12/18/21 22:10 Urine WBC (Auto) 10-30 /hpf (0-5) H 12/18/21 22:10 Urine RBC (Auto) 0-4 /hpf (0-4) 12/18/21 22:10 U Hyaline Cast (Auto) 5-10 /lpf (0-5) H 12/18/21 22:10 U Epithel Cells (Auto) 10-20 /lpf (0-5) H 12/18/21 22:10 Urine Bacteria (Auto) Negative (Negative) 12/18/21 22:10 Blood Type O Positive 12/18/21 19:28 Antibody Screen NEGATIVE 12/18/21 19:28 12/18/21 22:10 Urine Culture - Final Urine,Clean Catch More than three types of organisms present, all high counts mixed probable skin obi - No further identifications or sensitivities to follow.
[2021-12-21] MEDS ORDERED: fentaNYL citrate 100 MCG/2 ML VIAL IV PRN (10:25)
[2021-12-21] MEDS ORDERED: ATROPINE SULFATE 0.1 MG/ML 10ML SYR IV PRN (10:25)
[2021-12-21] MEDS ORDERED: ePHEDrine sulfate 50 MG/ML AMP IV PRN (10:25)
[2021-12-21] MEDS ORDERED: ONDANSETRON INJ 2 MG/ML 2 ML VIAL IV PRN (10:25)
--- NOTE | 2021-12-21 10:53 | Communication Note ---
Date of Service: December 21, 2021 The patient underwent upper endoscopy and endoscopic ultrasound this afternoon. Upon entry of the endoscopic ultrasound endoscope we found there was a large amount of blood and clotted material within the stomach, a limited EUS was performed revealing a 2 cm mass in the region of the gastric antrum. As there was evidence of active an upper endoscopy was then aspirated into the stomach and HemoSplit was used to help stop the bleeding. Recommendations. Refer patient to a tertiary center as he will likely need to have interventional radiology intervention or surgical intervention with a gastric resection for bleeding from
--- NOTE | 2021-12-21 11:15 | GI REPORT ---
Patient Name: Bakari Etienne Procedure Date: 12/21/2021 10:13 AM Date of : 1995 Admit Type: Inpatient Age: 26 Gender: Male Attending MD: Olga Rodriguez DO Procedure: Upper EUS Providers: Olga Rodriguez DO Referring MD: Margo Trinidad, Mandeep Siddiqui MD, Odalys Casper Md Indications: Gastric mucosal mass/polyp found on endoscopy, Pre-treatment staging of gastric adenocarcinoma Medicines: Monitored Anesthesia Care Complications: No immediate complications. Estimated blood loss: Minimal. Estimated Blood Loss: Estimated blood loss was minimal. Procedure: Pre-Anesthesia Assessment: - Prior to the procedure, a History and Physical was performed, and patient medications, allergies and sensitivities were reviewed. The patient's tolerance of previous anesthesia was reviewed. - The risks and benefits of the procedure and the sedation options and risks were discussed with the patient. All questions were answered and informed consent was obtained. - Patient identification and proposed procedure were verified prior to the procedure by the physician, the nurse and the endoscopy specialty technician. The procedure was verified in the procedure room. - Pre-procedure physical examination revealed no contraindications to sedation. - ASA Grade Assessment: III - A patient with severe systemic disease. - After reviewing the risks and benefits, the patient was deemed in satisfactory condition to undergo the procedure. - The anesthesia plan was to use monitored anesthesia care (MAC). - Immediately prior to administration of medications, the patient was re-assessed for adequacy to receive sedatives. - The heart rate, respiratory rate, oxygen saturations, blood pressure, adequacy of pulmonary ventilation, and response to care were monitored throughout the procedure. - The physical status of the patient was re-assessed after the procedure. After obtaining informed consent, the endoscope was passed under direct vision. Throughout the procedure, the patient's blood pressure, pulse, and oxygen saturations were monitored continuously. The Scope was introduced through the mouth, and advanced to the antrum of the stomach. The upper EUS was limited due to unexpected blood within the stomach. The Endoscope was introduced through the mouth, and advanced to the second part of duodenum. Findings: ENDOSCOPIC FINDING: : The examined esophagus was normal. Red blood was found in the gastric fundus and in the gastric body. A large, ulcerated, non-circumferential mass with oozing bleeding and stigmata of recent bleeding was found at the incisura. To stop active bleeding, hemostatic spray was deployed. Three sprays were applied. There was no bleeding at the end of the procedure. ENDOSONOGRAPHIC FINDING: : A hypoechoic oval mass was identified endosonographically in the incisura of the stomach. The mass measured 20 mm by 20 mm in maximal cross-sectional diameter. The endosonographic borders were poorly-defined. There was sonographic evidence suggesting invasion into the muscularis propria (Layer 4). An intact interface was seen between the mass and the adjacent structures suggesting a lack of invasion. Impression: - Normal esophagus. - Red blood in the gastric fundus and in the gastric body. - Malignant gastric tumor at the incisura. Hemostatic spray applied. - A mass was found in the incisura of the stomach. A tissue diagnosis was obtained prior to this exam. This is of adenocarcinoma. This was staged T2 Nx Mx by endosonographic criteria. Endoscopic ultrasound was very limited due to ongoing bleeding. - No specimens collected. Recommendation: - [facility]. - Refer to tertiary center as patient may need interventional radiology intervention for surgical intervention. Olga Rodriguez D.O. Olga Rodriguez, 12/21/2021 11:15:13 AM This report has been signed electronically. Note Initiated On: 12/21/2021 10:13 AM Number of Addenda: 0 I attest to the content of the Intraoperative Record and orders documented therein, exceptions below {[id number]}
--- NOTE | 2021-12-21 11:29 | Anesthesiology Progress Note ---
Date of Service December 21, 2021 Anesthesia Post Procedure Vital Signs Vital Signs: Temp Pulse Pulse Resp BP Pulse Ox O2 Del Method 12/21/21 11:05 86 16 112/65 99 Room Air 12/21/21 10:56 36.2 C L 89 18 113/65 99 Room Air 12/21/21 10:00 36.9 C 76 20 117/57 L 98 Room Air 12/21/21 08:00 66 12/21/21 08:00 36.3 C L 79 18 98/61 L 98 12/21/21 03:38 37.0 C 68 18 101/65 99 Room Air 12/21/21 00:00 36.8 C 79 18 119/54 L 98 Room Air 12/20/21 20:21 37.0 C 71 18 98/61 L 99 Room Air 12/20/21 11:45 36.9 C 80 17 105/72 99 Room Air 12/20/21 15:46 36.7 C 73 18 110/70 98 Room Air Transfer of Care Handoff Completed per policy Notes Mental Status: alert / awake / arousable and participated in evaluation Patient Amnestic to Procedure: Yes Nausea / Vomiting: adequately controlled Pain: adequately controlled Airway Patency, RR, SpO2: stable & adequate BP & HR: stable & adequate Hydration State: stable & adequate Anesthetic Complications: no major complications apparent and Pt Satisfied with anesthetic care
[2021-12-21] MEDS: CYANOCOBALAMIN (B-12) 500 MCG TABLET PO SCH (11:48)
[2021-12-21] MEDS: PANTOprazole 40 MG in SYRINGE 0 ML IV SCH ×2 (11:48→19:44)
[2021-12-21 12:18] LABS: Hematocrit (blood only) 22.7 % (40.1-51.0); Hemoglobin 7.8 g/dl (14.0-18.0)
[2021-12-21 16:11] LABS: Hematocrit (blood only) 22.7 % (40.1-51.0); Hemoglobin 7.8 g/dl (14.0-18.0)
--- NOTE | 2021-12-21 20:18 | Discharge Summary ---
Date of Service December 21, 2021 Admission HPI Per Admitting Provider Bakari Etienne is a 26yo male with no significant past medical history presenting with one day of nausea with 3 episodes of hematemesis that started this AM. He reports bright red blood with presence of clots in the vomitus. He also has had several episodes of black, watery diarrhea. Patient reports feeling chills and tired. He also had dizziness and possible syncopal event while in the shower today. He has no additional complaints. Specifically denies fever, chills, cough, SOB, chest pain, abdominal pain. No sick contacts, recent travel. Patient does smoke cigarettes - appx 1 ppd. He does not drink alcohol or use NSAIDS or ASA. No history of prior GIB. 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 No additional complaints at this time. Upon arrival to the ER patient hypotensive at 66/45. He was administered IV Pepcid, Zofran, Protonix and 2L NSS with improvement in blood pressure. Most recently 107/54. ER course: Pepcid 20mg IV, Zofran 4mg IV, Protonix gtt, NSS x 2L Admission Exam (Per Admitting) Constitutional General: patient resting comfortably, NAD, non-toxic in appearance, AA&O x 4 Skin: warm, dry, intact, no rashes or lesions HEENT: NC/AT, PERRL, EOMI, anicteric sclera, conjunctiva without injection, external ear normal to inspection and nontender, nares patent, moist mucus membr anes, dentition intact, no oropharyngeal lesions, neck supple, trachea midline, no LAD, no thyromegaly, no JVD Heart: +S1/S2, regular, no m/r/g Lungs: equal air entry bilaterally, no rales/rhonchi/wheezes Abd: +BS, soft, NT/ND, no masses/organomegaly/ascites Ext: warm, 2+ pulses in UE/LE bilaterally, no clubbing/cyanosis or edema Neuro: nonfocal, patient AA&O x 4, speech intact, no facial droop, moving all extremities on command with equal strength 5/5 Specialty Data Hospitalist DICTATED BY:Mandeep Siddiqui Jr, MD Patient Name: Bakari Etienne Procedure Date: 12/19/2021 3:24 PM Date of : 1995 Admit Type: Inpatient Age: 26 Gender: Male Attending MD: Mandeep Siddiqui MD Procedure: Upper GI endoscopy Providers: Mandeep Siddiqui MD Referring MD: Deepti Boyce Do Indications: Hematemesis Medicines: Propofol per Anesthesia Complications: No immediate complications. Estimated Blood Loss: Estimated blood loss: none. Procedure: Pre-Anesthesia Assessment: - Prior to the procedure, a History and Physical was performed, and patient medications and allergies were reviewed. The patient's tolerance of previous anesthesia was also reviewed. The risks and benefits of the procedure and the sedation options and risks were discussed with the patient. All questions were answered, and informed consent was obtained. Prior Anticoagulants: The patient has taken no previous anticoagulant or antiplatelet agents. ASA Grade Assessment: I - A normal, healthy patient. After reviewing the risks and benefits, the patient was deemed in satisfactory condition to undergo the procedure. After obtaining informed consent, the endoscope was passed under direct vision. Throughout the procedure, the patient's blood pressure, pulse, and oxygen saturations were monitored continuously. The Endoscope was introduced through the mouth, and advanced to the second part of duodenum. The upper GI endoscopy was accomplished without difficulty. The patient tolerated the procedure well. Findings: The esophagus was normal. One non-bleeding cratered gastric ulcer with pigmented material was found on the lesser curvature of the gastric antrum. The lesion was 25 mm in largest dimension. Biopsies were taken with a cold forceps for histology. The exam of the stomach was otherwise normal. The examined duodenum was normal. Impression: - Normal esophagus. - Non-bleeding gastric ulcer with pigmented material. Biopsied. - Normal examined duodenum. Recommendation: - Patient has a contact number available for emergencies. The signs and symptoms of potential delayed complications were discussed with the patient. Return to normal activities tomorrow. Written discharge instructions were provided to the patient. - Resume previous diet. - Continue present medications. - Await pathology results. Mandeep Siddiqui MD 12/19/2021 3:43:28 PM Note Initiated On: 12/19/2021 3:24 PM Number of Addenda: 0 I attest to the content of the Intraoperative Record and orders documented therein, exceptions below DICTATED BY:Olga Rodriguez DO Patient Name: Bakari Etienne Procedure Date: 12/21/2021 10:13 AM Date of : 1995 Admit Type: Inpatient Age: 26 Gender: Male Attending MD: Olga Rodriguez DO Procedure: Upper EUS Providers: Olga Rodriguez DO Referring MD: Margo Trinidad, Mandeep Siddiqui MD, Odalys Casper Md Indications: Gastric mucosal mass/polyp found on endoscopy, Pre-treatment staging of gastric adenocarcinoma Medicines: Monitored Anesthesia Care Complications: No immediate complications. Estimated blood loss: Minimal. Estimated Blood Loss: Estimated blood loss was minimal. Procedure: Pre-Anesthesia Assessment: - Prior to the procedure, a History and Physical was performed, and patient medications, allergies and sensitivities were reviewed. The patient's tolerance of previous anesthesia was reviewed. - The risks and benefits of the procedure and the sedation options and risks were discussed with the patient. All questions were answered and informed consent was obtained. - Patient identification and proposed procedure were verified prior to the procedure by the physician, the nurse and the director public service. The procedure was verified in the procedure room. - Pre-procedure physical examination revealed no contraindications to sedation. - ASA Grade Assessment: III - A patient with severe systemic disease. - After reviewing the risks and benefits, the patient was deemed in satisfactory condition to undergo the procedure. - The anesthesia plan was to use monitored anesthesia care (MAC). - Immediately prior to administration of medications, the patient was re-assessed for adequacy to receive sedatives. - The heart rate, respiratory rate, oxygen saturations, blood pressure, adequacy of pulmonary ventilation, and response to care were monitored throughout the procedure. - The physical status of the patient was re-assessed after the procedure. After obtaining informed consent, the endoscope was passed under direct vision. Throughout the procedure, the patient's blood pressure, pulse, and oxygen saturations were monitored continuously. The Scope was introduced through the mouth, and advanced to the antrum of the stomach. The upper EUS was limited due to unexpected blood within the stomach. The Endoscope was introduced through the mouth, and advanced to the second part of duodenum. Findings: ENDOSCOPIC FINDING: : The examined esophagus was normal. Red blood was found in the gastric fundus and in the gastric body. A large, ulcerated, non-circumferential mass with oozing bleeding and stigmata of recent bleeding was found at the incisura. To stop active bleeding, hemostatic spray was deployed. Three sprays were applied. There was no bleeding at the end of the procedure. ENDOSONOGRAPHIC FINDING: : A hypoechoic oval mass was identified endosonographically in the incisura of the stomach. The mass measured 20 mm by 20 mm in maximal cross-sectional diameter. The endosonographic borders were poorly-defined. There was sonographic evidence suggesting invasion into the muscularis propria (Layer 4). An intact interface was seen between the mass and the adjacent structures suggesting a lack of invasion. Impression: - Normal esophagus. - Red blood in the gastric fundus and in the gastric body. - Malignant gastric tumor at the incisura. Hemostatic spray applied. - A mass was found in the incisura of the stomach. A tissue diagnosis was obtained prior to this exam. This is of adenocarcinoma. This was staged T2 Nx Mx by endosonographic criteria. Endoscopic ultrasound was very limited due to ongoing bleeding. - No specimens collected. Recommendation: - [facility]. - Refer to tertiary center as patient may need interventional radiology intervention for surgical intervention. Olga Rodriguez D.O. Olga Rodriguez, 12/21/2021 11:15:13 AM This report has been signed electronically. Note Initiated On: 12/21/2021 10:13 AM Number of Addenda: 0 I attest to the content of the Intraoperative Record and orders documented therein, exceptions below Discharge Data Consultations 12/18/21 20:20 ED Decision to Admit Stat 12/18/21 23:05 Consult Gastroenterology Routine 12/20/21 09:31 Consult Oncology Routine 12/20/21 13:56 Burn CD for patient Stat Procedures Performed Operation Date: 12/19/21 16:45 Actual Procedures p EGD Biopsy Cytology - Mandeep Siddiqui Jr, MD Operation Date: 12/21/21 11:45 Actual Procedures s Endoscopic Ultrasonography Upper(Not Applicable) - Olga Rodriguez DO p EGD Hemostasis - Olga Rodriguez, Hospital Course (1) B12 deficiency: (2) Gastric cancer: (3) GIB (gastrointestinal bleeding): (4) Anemia: Plan 26 yo M originally from [place], current smoker with 5 pack year history, admitted for hematemesis and melena. s/p EGD revealing gastric ulcer. Biopsy revealed poorly differentiated adenocarcinoma, Acute blood loss anemia 2/2 hematemesis, upper gastrointestinal hemorrhage -Hypotensive on admission, given multiple fluid boluses -Suspect likely due to peptic ulcer disease 2/2 smoking -PT/INR normal, stool GI PCR panel -Hgb 10.8 on admission, 8.1 to 7.8 today- has not required any blood transfusions -GI consulted -EGD 12/19- normal esophagus, non-bleeding gastric ulcer with pigmented material -EUS 12/21 for cancer workup -During procedure, large amount of blood with clotting noted in gastric fundus/body, hemostatic spray applied -Malignant 2 cm mass of antrum- gastric adenocarcinoma noted- T2 Nx Mx by EUS criteria -Recommend transfer to tertiary care for interventional radiology + surgical intervention -Transfer accepted to [facility] under accepting hospitalist Dr. Fariba Valle -Records/images sent to [facility] -Transferred 12/21 -Hgb stable at 7.8 -> 7.8, hemodynamically stable at time of discharge- did not receive any blood transfusions Gastric adenocarcinoma -Gastric ulcer pathology- initial appearance suspicious for poorly differentiated adenocarcinoma -Pt does report family history of GI malignancy in 2 maternal uncles, of [place] ethnicity -One in his late 30s/40s, other received tumor resection -Oncology consulted -CTAP -Bowel wall thickening, 1.8 cm ulceration at antrum- mild inflammatory change, trace fluid -Subcentimeter lymph nodes adjacent to gastric mass, may represent early metastatic change -Chest CT- unremarkable -Further testing pending- LEE/FISH/PDL1/Her2/MSI per pathology -Endoscopic ultrasound 12/21, findings as above Vitamin B12 deficiency -B12 level of 167 -Continue B12 supplementation- 1000 mcg PO daily Acute kidney injury -BUN 49, Cr 2.69 on admission -Suspect this was pre-renal azotemia from volume depletion 2/2 UGIB, GI losses -Resolved to Cr 0.9 with IVF resuscitation Tobacco use disorder -Likely cause of his GI bleed -Pt interested in gradually reducing use -Encourage smoking cessation treatment as outpatient MARIAAI: NPO Code status: Full DVT ppx: Ambulation Isolation: None Dispo: Medical/surgical with telemetry, transferred to [place] on 12/21 Coding Level of Care Code D/C DAY MANAGEMENT <30 MINS Diagnoses B12 deficiency E53.8 Gastric cancer C16.9 GIB (gastrointestinal bleeding) K92.2 Anemia D64.9 Anemia type: unspecified type
[2021-12-22] MEDS: CYANOCOBALAMIN (B-12) 500 MCG TABLET PO SCH (10:29)
[2021-12-22] MEDS: PANTOprazole 40 MG in SYRINGE 0 ML IV SCH (10:29)
[2021-12-22 13:20] LABS: Hematocrit (blood only) 24.7 % (40.1-51.0); Hemoglobin 8.4 g/dl (14.0-18.0)
[2021-12-22 13:42] LABS: BUN Creatinine Ratio 18.1 (10-20); Calcium 8.7 mg/dl (8.5-10.1); Creatinine Clr Calc Pharmacy 147.4 ml/min; Potassium 3.9 mmol/L (3.5-5.1)
--- NOTE | 2021-12-22 15:58 | Hospitalist Progress Note ---
Date of Service December 22, 2021 Assessment & Plan (1) Nausea vomiting and diarrhea: Plan: 26 yo M, current smoker with 5 pack year history, admitted for hematemesis and melena. Acute blood loss anemia 2/2 hematemesis, upper gastrointestinal hemorrhage -Hypotensive on admission, given multiple fluid boluses -Suspect likely due to peptic ulcer disease 2/2 smoking -PT/INR normal, stool GI PCR panel -Hgb 10.8 on admission, 8.4 today- has not required any blood transfusions -GI consulted -EGD 12/19- normal esophagus, non-bleeding gastric ulcer with pigmented material -EUS 12/21 for cancer workup -During procedure, large amount of blood with clotting noted in gastric fundus/body, hemostatic spray applied -Malignant 2 cm mass of antrum- gastric adenocarcinoma noted- T2 Nx Mx by EUS criteria -Recommend transfer to tertiary care for interventional radiology + surgical intervention -Transfer accepted to [facility] under accepting hospitalist Dr. Fariba Valle -Records/images sent to [facility] -Hgb stable at 8.4, hemodynamically stable at time of discharge- did not receive any blood transfusions during stay -Issues with transfer due to self pay. Set to be taken by EMS/medics at 7PM tonight. Gastric adenocarcinoma -Gastric ulcer pathology- initial appearance suspicious for poorly differentiated adenocarcinoma -Pt does report family history of GI malignancy in 2 maternal uncles, of [place] ethnicity -One in his late 30s/40s, other received tumor resection -Oncology consulted -CTAP -Bowel wall thickening, 1.8 cm ulceration at antrum- mild inflammatory change, trace fluid -Subcentimeter lymph nodes adjacent to gastric mass, may represent early metastatic change -Chest CT- unremarkable -Further testing pending- LEE/FISH/PDL1/Her2/MSI per pathology -Endoscopic ultrasound 12/21, findings as above Vitamin B12 deficiency -B12 level of 167 -Continue B12 supplementation- 1000 mcg PO daily Acute kidney injury -BUN 49, Cr 2.69 on admission -Suspect this was pre-renal azotemia from volume depletion 2/2 UGIB, GI losses -Resolved to Cr 0.9 with IVF resuscitation Tobacco use disorder -Likely cause of his GI bleed -Pt interested in gradually reducing use -Encourage smoking cessation treatment as outpatient FENGI: NPO Code status: Full DVT ppx: Ambulation Isolation: None Dispo: Medical/surgical with telemetry, Transfer to [place] today at 7PM, if not transferred possibility patient may want to leave AMA due to transport delay. (2) GIB (gastrointestinal bleeding): (3) HALIE (acute kidney injury): Admission and Anticipated Discharge Date Admission Date: December 18, 2021 Subjective Spoke with patient at the bedside this morning, he is feeling frustrated with not being transported last night. Patient denies hematemesis, nausea, abdominal pain, fevers, chills. Patient was supposed to have transport last night but EMS was needed for more emergent case for transport then today at 2PM however EMS did not transport since patient unable to pay for transport (self pay). Medics may be able to transport at 7PM tonight. Review of Systems Review of Systems: Per subjective Physical Exam Constitutional: WD/WN, vitals as above Eyes: PERRL, conjunctivae normal, anicteric sclerae Respiratory: normal respiratory effort, lungs clear to auscultation Cardiovascular: RRR, no murmur, no edema Gastrointestinal (Abdomen): normal bowel sounds, soft, nontender, no hepatosplenomegaly Psychiatric: A+Ox3, euthymic affect Results & Data Results & Data ([facility]) Vital Signs (Past 12 Hours) Vital Signs Temp Pulse Pulse Resp BP Pulse Ox O2 Del Method 12/22/21 06:45 65 12/22/21 12:37 36.8 C 71 18 116/74 100 Room Air 12/22/21 08:41 36.8 C 61 18 95/59 L 96 Room Air 12/22/21 04:37 36.9 C 79 17 105/63 98 Room Air Resident Activity Tracking Resident Involvement: Resident Care Provided Care Provided: Adult Hospital Medicine
[2021-12-22] MEDS ORDERED: LACTATED RINGER'S 1,000 ML IV SCH (16:45)
== END 2021-12-22 20:30 | disposition short-term general hospital (02) | DRG 375 ==
LOC: ED 18:32 → EDINP 20:47 → SUATTDRO 20:47 → 4W 23:05